=== PATIENT | male | born 1980 | race Two or more races ===

== ENCOUNTER 2017-05-16 15:01 | Inpatient (IN) | payer OTHER ==
[2017-05-16 19:35] VITALS: BMI 36.9
--- NOTE | 2017-05-16 20:16 | HP ---
Admission ROS [facility] - [facility] Chief Complaint: seeking rehab services after detox to maintain sobriety. Allergies/Adverse Reactions: Allergies Allergy/AdvReac Type Severity Reaction Status Date / Time No Known Allergies Allergy Verified 05/16/17 18:30 History of Present Illness: 37 Y.O. MALE WITH HX/OF ALCOHOLISM PCP AND CANNABIS DEPENDENCE HERE FOR REHAB. CLIENT WAS REFERRED BY [facility] AFTER COMPLETING DETOX THERE. STATES HAS NOT HAD ANY ALCOHOL OVER A WEEK. 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 DENIES LEGALS Exam Limitations: No Limitations - Ebola screening Have you traveled outside of the country in the last 21 days: No (N) Have you had contact with anyone from an Ebola affected area: No Have you been sick,other than usual withdrawal symptoms: No Do you have a fever: No - Review of Systems Constitutional: No Symptoms Reported EENT: reports: No Symptoms Reported Respiratory: reports: No Symptoms reported Cardiac: reports: No Symptoms Reported GI: reports: No Symptoms Reported : reports: No Symptoms Reported Musculoskeletal: reports: No Symptoms Reported Integumentary: reports: No Symptoms Reported Neuro: reports: No Symptoms reported Endocrine: reports: No Symptoms Reported Hematology: reports: No Symptoms Reported Psychiatric: reports: Anxious, Depressed Other Systems: Reviewed and Negative Patient History - Patient Medical History Hx Anemia: No Hx Asthma: No Hx Chronic Obstructive Pulmonary Disease (COPD): No Hx Cancer: No Hx Cardiac Disorders: No Hx Congestive Heart Failure: No Hx Hypertension: No Hx Hypercholesterolemia: No Hx Pacemaker: No HX Cerebrovascular Accident: No Hx Seizures: No Hx Dementia: No Hx Diabetes: No Hx Gastrointestinal Disorders: No Hx Liver Disease: No Hx Genitourinary Disorders: No Hx Sexually Transmitted Disorders: No Hx Renal Disease (ESRD): No Hx Thyroid Disease: No Hx Human Immunodeficiency Virus (HIV): No Hx Hepatitis C: No Hx Depression: Yes (ZOLOFT) Hx Suicide Attempt: No Hx Bipolar Disorder: Yes (ZYPREXA) Hx Schizophrenia: Yes Other Medical History: ANXIETY - Patient Surgical History Past Surgical History: No - PPD History Previous Implant?: Yes Documented Results: Negative w/o proof Implanted On Prior [facility] Admission?: No PPD to be Administered?: Yes - Smoking Cessation Smoking history: Current every day smoker Aproximately how many cigarettes per day: 8 Cigars Per Day: 0 Hx Chewing Tobacco Use: No Initiated information on smoking cessation: Yes 'Breaking Loose' booklet given: 05/16/17 - Substance & Tx. History Hx Alcohol Use: Yes Hx Substance Use: Yes Substance Use Type: Alcohol, Marijuana, Tranquilizers (PCP) Hx Substance Use Treatment: Yes ([facility]) - Substances Abused ZAID Route: Oral Frequency: Daily Amount used: 1 LITER Age of first use: 14 Date of Last Use: 05/09/17 PCP Route: Smoking Frequency: 3-6 times per week Amount used: 1 BAG Age of first use: 28 Date of Last Use: 05/09/17 THC Route: Smoking Frequency: 3-6 times per week Amount used: 2 JOINTS Age of first use: 14 Date of Last Use: 05/09/17 Family Disease History - Family Disease History Family History: Denies Admission Physical Exam [facility] - Vital Signs Vital Signs: Vital Signs - 24 hr 05/16/17 19:33 Temperature 97.7 F Pulse Rate 103 H Respiratory 18 Rate Blood Pressure 140/80 - Physical General Appearance: Yes: No Apparent Distress, Appropriately Dressed HEENTM: Yes: EOMI, Normocephalic, Normal Voice, NOEMI, Pharynx Normal Respiratory: Yes: Chest Non-Tender, Lungs Clear, Decreased Breath Sounds, No Respiratory Distress, No Accessory Muscle Use Neck: Yes: No masses,lesions,Nodules, Supple, Trachea in good position Breast: Yes: Other (GYNECOMASTIA) Cardiology: Yes: Regular Rhythm, S1, S2, Tachycardia Abdominal: Yes: Normal Bowel Sounds, Soft, Protuberent Genitourinary: Yes: Within Normal Limits Back: Yes: Normal Inspection Musculoskeletal: Yes: full range of Motion, Gait Steady Extremities: Yes: Normal Capillary Refill, Normal Inspection, Normal Range of Motion, Non-Tender 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, Fully Oriented, Alert, Motor Strength 5/5, Normal Mood/Affect Integumentary: Yes: Normal Color, Dry, Warm Lymphatic: Yes: Within Normal Limits - Diagnostic (1) PCP dependence Current Visit: Yes Status: Chronic (2) Cannabis abuse Current Visit: Yes Status: Chronic (3) Uncomplicated alcohol dependence Current Visit: Yes Status: Chronic (4) Nicotine dependence Current Visit: Yes Status: Chronic Qualifiers: Nicotine product type: cigarettes Substance use status: uncomplicated Qualified Code(s): F17.210 - Nicotine dependence, cigarettes, uncomplicated Cleared for Admission [facility] - Detox or Rehab Detox Regimen/Protocol: Not Applicable Claeared for Rehab Admission: Yes [facility] Breath Alcohol Content Breath Alcohol Content: 0 Urine Drug Screen - Results Drug Screen Negative: No Urine Drug Screen Results: THC-Marijuana, PCP-Phencyclidine Inpatient Rehab Admission - Initial Determination Are CD services needed?: Yes Free of communicable disease: Yes Not in need of hospitalization: Yes - Rehab Admission Criteria Previous failed treatment: Yes Poor recovery environment: Yes Comorbidities: Yes Lacks judgement: Yes Patient is meeting Inpatient Rehab admission criteria:: Yes
[2017-05-16] MEDS ORDERED: guaiFENesin/D-METHORPHAN HB 10 ML UNIT-DOSE CUPS PO PRN (20:25)
[2017-05-16] MEDS ORDERED: hydrOXYzine PAMOATE 50 MG CAPSULE (FP) PO PRN (20:25)
[2017-05-16] MEDS ORDERED: MENTHOL/PHENOL 1 EACH UD MM PRN (20:25)
[2017-05-16] MEDS ORDERED: P-EPHED 60MG/TRIPROLIDI 2.5MG TABLET PO PRN (20:25)
[2017-05-16] MEDS ORDERED: ACETAMINOPHEN 325 MG TABLET (FP) PO PRN (20:25)
[2017-05-16] MEDS ORDERED: NICOTINE POLACRILEX 2 MG GUM BUC PRN (20:25)
[2017-05-16] MEDS ORDERED: MAGNESIUM CITRATE 300 ML BOTTLE PO PRN (20:25)
[2017-05-16] MEDS ORDERED: MAG HYDROX/AL HYDROX/SIMETH 30 ML UNIT-DOSE CUP PO PRN (20:25)
[2017-05-16] MEDS ORDERED: MAGNESIUM HYDROX 2400MG/30ML ORAL SUSPENSION 30 ML CUP PO PRN (20:25)
[2017-05-16] MEDS ORDERED: IBUPROFEN 400 MG TABLET (FP) PO PRN (20:25)
[2017-05-16] MEDS ORDERED: LOPERAMIDE HCL 2 MG CAPSULE PO PRN (20:25)
[2017-05-16] MEDS ORDERED: TUBERCULIN PPD 5 TU/0.1ML VIAL ID ONE (23:01)
[2017-05-16] MEDS: THIAMINE HCL 100 MG TABLET (FP) PO SCH (23:03)
[2017-05-17 00:25] LABS: URINE APPEARANCE CLOUDY; URINE BILIRUBIN NEGATIVE (NEGATIVE); URINE BLOOD NEGATIVE (NEGATIVE); URINE COLOR AMBER; URINE GLUCOSE (UA) NEGATIVE (NEGATIVE); URINE KETONE NEGATIVE (NEGATIVE); URINE LEUK ESTERASE NEGATIVE (NEGATIVE); URINE NITRITE NEGATIVE (NEGATIVE)
[2017-05-17 00:38] LABS: URINE PROTEIN 1+ (NEGATIVE)
[2017-05-17 01:10] LABS: URINE MUCUS MANY; URINE RBC 2 /hpf (0-3); URINE WBC 2 /hpf (3-5)
--- NOTE | 2017-05-17 09:39 | HP ---
Psychiatrist Admission - Data Date of interview: 05/17/17 Admission source: [facility] Identifying data: This is the third [facility] admission first at for this 37 year old single male residing with his parent's [facility] apartment. Medical History: obesity, smokes cigarettes 5 a day. Psychiatric History: Patient reports his first psychiatric contact was around age 17, to address hyperactivity. Reported numerous hospitalizations but is unable to give details. [facility] most recent hospitalization was 2 months ago at [facility], currently under the care of psychiatrist at [email or web address] on Zyprexa 10 mg po hs and Zoloft 50 mg po daily. States was diagnosed as Bipolar , depressed. Physical/Sexual Abuse/Trauma History: Reports no history of physical or sexual abuse and no history of service. Vital Signs: Vital Signs - 24 hr 05/16/17 05/17/17 05/17/17 19:33 03:30 06:55 Temperature 97.7 F 97.9 F Pulse Rate 103 H 87 Respiratory 18 20 20 Rate Blood Pressure 140/80 133/85 Allergies/Adverse Reactions: Allergies Allergy/AdvReac Type Severity Reaction Status Date / Time No Known Allergies Allergy Verified 05/16/17 18:30 Date of last physical exam: 05/16/17 Concur with the findings of this exam: Yes - Substance Abuse/Tx History Hx Alcohol Use: Yes (1 liter of felicity daily use) Hx Substance Use: Yes Substance Use Type: Cocaine (daily $40-60), Marijuana (2 times a day) Hx Substance Use Treatment: Yes (detox/rehab x2 at [facility]) Mental Status Exam - Mental Status Exam Alert and Oriented to: Time, Place, Person Patient Appearance: Well Groomed Mood: Sad, Anxious Affect: Appropriate, Mood Congruent Patient Behavior: Appropriate, Cooperative Speech Pattern: Clear, Appropriate Voice Loudness: Normal Thought Process: Intact, Goal Oriented Thought Disorder: Not Present Hallucinations: Denies Suicidal Ideation: Denies Homicidal Ideation: Denies Insight/Judgement: Fair Sleep: Fair Appetite: Fair Muscle strength/Tone: Normal Gait/Station: Normal Psychiatric Findings - Problem List ([place] 1, 2,3) (1) Alcohol dependence Current Visit: Yes Status: Acute (2) Cocaine dependence Current Visit: Yes Status: Acute (3) Bipolar 1 disorder Current Visit: Yes Status: Acute (4) Nicotine dependence Current Visit: Yes Status: Chronic Qualifiers: Nicotine product type: cigarettes Substance use status: uncomplicated Qualified Code(s): F17.210 - Nicotine dependence, cigarettes, uncomplicated (5) PCP dependence Current Visit: Yes Status: Chronic - Initial Treatment Plan Initial Treatment Plan: Will continue Zyprexa 10 mg po hs and Zoloft 50 mg po daily, monitor progress as needed.
[2017-05-17] MEDS: PRENATAL VITAMINS W/ FOLIC ACID TABLET (FP) PO SCH (10:16)
[2017-05-17] MEDS: NICOTINE 14 MG/24 HOURS TOPICAL PATCH TD SCH (10:16)
--- NOTE | 2017-05-17 10:49 | EKG ---
Test Reason : Blood Pressure : / mmHG Vent. Rate : 100 BPM Atrial Rate : 100 BPM P-R Int : 132 ms QRS Dur : 094 ms QT Int : 370 ms P-R-T Axes : 058 051 059 degrees QTc Int : 477 ms NORMAL SINUS RHYTHM NORMAL ECG NO PREVIOUS ECGS AVAILABLE Confirmed by MD [place], JOEL ([id number]) on 05/17/2017 10:49:17 AM Referred By: Confirmed By:JOEL MCPHERSON MD
[2017-05-17 11:12] LABS: MCH 27.1 pg (25.7-33.7); MCHC 32.1 g/dl (32.0-35.9); MEAN CELL VOLUME 84.4 fl (80-96); MEAN PLT VOLUME 9.6 fl (7.5-11.1); PLATELET COUNT 199 K/MM3 (134-434); WHITE BLOOD COUNT 8.8 K/mm3 (4.0-10.0)
[2017-05-17 11:14] LABS: ALBUMIN 3.1 g/dl (3.4-5.0); ALK PHOS 84 U/L (45-117); ANION GAP 5 (8-16); BILIRUBIN,TOTAL 0.4 mg/dL (0.2-1.0); CO2 30 mmol/L (21-32); CREATININE 0.7 mg/dL (0.7-1.3); GLUCOSE,RANDOM 90 mg/dL (74-106); SGOT/AST 22 U/L (15-37); SGPT/ALT 32 U/L (12-78); TOT PROT 6.7 g/dl (6.4-8.2)
[2017-05-17 15:09] LABS: URINE LEUK ESTERASE Negative (NEGATIVE)
[2017-05-17] MEDS: THIAMINE HCL 100 MG TABLET (FP) PO SCH (21:41)
[2017-05-18] MEDS: SERTRALINE HCL 50 MG TABLET (FP) PO SCH (10:27)
[2017-05-18] MEDS: OLANZapine 10 MG TABLET PO SCH (10:27)
[2017-05-18] MEDS: PRENATAL VITAMINS W/ FOLIC ACID TABLET (FP) PO SCH (10:27)
[2017-05-18] MEDS: NICOTINE 14 MG/24 HOURS TOPICAL PATCH TD SCH (10:27)
[2017-05-18] MEDS: THIAMINE HCL 100 MG TABLET (FP) PO SCH (21:49)
[2017-05-19] MEDS: PRENATAL VITAMINS W/ FOLIC ACID TABLET (FP) PO SCH (10:32)
[2017-05-19] MEDS: OLANZapine 10 MG TABLET PO SCH (10:32)
[2017-05-19] MEDS: SERTRALINE HCL 50 MG TABLET (FP) PO SCH (10:32)
[2017-05-19] MEDS: NICOTINE 14 MG/24 HOURS TOPICAL PATCH TD SCH (10:48)
[2017-05-19] MEDS: THIAMINE HCL 100 MG TABLET (FP) PO SCH (21:32)
[2017-05-20] MEDS: SERTRALINE HCL 50 MG TABLET (FP) PO SCH (10:45)
[2017-05-20] MEDS: OLANZapine 10 MG TABLET PO SCH (10:45)
[2017-05-20] MEDS: NICOTINE 14 MG/24 HOURS TOPICAL PATCH TD SCH (10:45)
[2017-05-20] MEDS: PRENATAL VITAMINS W/ FOLIC ACID TABLET (FP) PO SCH (10:45)
[2017-05-20] MEDS: THIAMINE HCL 100 MG TABLET (FP) PO SCH (21:59)
[2017-05-21 06:53] VITALS: BP 145/84; PULSE 84; TEMP 97.8
[2017-05-21] MEDS: SERTRALINE HCL 50 MG TABLET (FP) PO SCH (10:32)
[2017-05-21] MEDS: NICOTINE 14 MG/24 HOURS TOPICAL PATCH TD SCH (10:32)
[2017-05-21] MEDS: OLANZapine 10 MG TABLET PO SCH (10:32)
[2017-05-21] MEDS: PRENATAL VITAMINS W/ FOLIC ACID TABLET (FP) PO SCH (10:32)
--- NOTE | 2017-05-21 12:57 | PN ---
Psychiatric Progress Note Vital Signs: Vital Signs Period Temp Pulse Resp BP Sys/Simental Pulse Ox Last 24 Hr 97.8 F 84 18-18 145/84 Date of Session: 05/21/17 Chief Complaint:: "leaving AMA" HPI: Patient is a 37 year old male with histry of alcohol, cocaine, PCP, nicotine dependence comorbid Bipolar disorder. ROS: WNL Current Side Effect: No Lab tests ordered: No Lab tests reviewed: Yes Provider note:: Patient requested to be discharged today, met with the patient to explore reasons for this decision, he reported that "I have court date tomorrow, I have to leave today". Patient was encouraged to stay and continue treatment but adamant to leave the treatment. Scripts provided for 30 days, patient is stable for AMA discharge. Total face to face time:: 15 Mental Status Exam - Mental Status Exam Alert and Oriented to: Time, Place, Person Cognitive Function: Good Patient Appearance: Well Groomed Mood: Hopeful Affect: Appropriate, Mood Congruent Patient Behavior: Appropriate, Cooperative Speech Pattern: Clear, Appropriate Voice Loudness: Normal Thought Process: Intact, Goal Oriented Thought Disorder: Not Present Hallucinations: Denies Suicidal Ideation: Denies Homicidal Ideation: Denies Insight/Judgement: Fair Sleep: Fair Appetite: Fair Muscle strength/Tone: Normal Gait/Station: Normal Psychiatric Treatment Plan - Problem List (4) Nicotine dependence Qualifiers: Nicotine product type: cigarettes Substance use status: uncomplicated Qualified Code(s): F17.210 - Nicotine dependence, cigarettes, uncomplicated
== END 2017-05-21 11:50 | disposition left against medical advice (07) | DRG 770 ==
LOC: YASAS 15:01 → Y5N 20:12
PROVIDERS: ADMIT Psychiatry & Neurology Psychiatry; ATTEND Psychiatry & Neurology Psychiatry
PROC: HZ42ZZZ Group Counseling for Substance Abuse Treatment, Cognitive-Behavioral (ICD-10-PCS; principal; 2017-05-16)
DX: F10.20 Alcohol dependence, uncomplicated (principal); F14.20 Cocaine dependence, uncomplicated; F16.20 Hallucinogen dependence, uncomplicated; F31.89 Other bipolar disorder
CPT/HCPCS: 36415; 80053; 81003; 81015; 85027; 86593; 86803; 93005; 93010

== ENCOUNTER 2021-02-19 01:49 | Inpatient (IN) | payer OTHER ==
[2021-02-19 02:25] VITALS: BMI 40.1
[2021-02-19] MEDS ORDERED: MENTHOL/PHENOL 1 EACH UD MM PRN (03:17)
[2021-02-19] MEDS ORDERED: MAGNESIUM CITRATE 300 ML BOTTLE PO PRN (03:17)
[2021-02-19] MEDS ORDERED: IBUPROFEN 400 MG TABLET (FP) PO PRN (03:17)
[2021-02-19] MEDS ORDERED: ONDANSETRON *ODT* 4 MG TABLET SL PRN (03:17)
[2021-02-19] MEDS ORDERED: BISMUTH SUBSALICYLATE 524 MG/30 ML PO PRN (03:17)
[2021-02-19] MEDS ORDERED: MAG HYDROX/AL HYDROX/SIMETH 30 ML UNIT-DOSE CUP PO PRN (03:17)
[2021-02-19] MEDS ORDERED: MAGNESIUM HYDROX 2400MG/30ML ORAL SUSPENSION 30 ML CUP PO PRN (03:17)
[2021-02-19] MEDS ORDERED: ACETAMINOPHEN 325 MG TABLET (FP) PO PRN ×2 (03:17)
[2021-02-19] MEDS ORDERED: diazePAM 5 MG TABLET PO PRN (08:58)
[2021-02-19] MEDS: PRENATAL VITAMINS W/ FOLIC ACID TABLET (FP) PO SCH (11:17)
[2021-02-19] MEDS: diazePAM 5 MG TABLET PO SCH ×3 (11:17→23:21)
[2021-02-19] MEDS: MELATONIN 5 MG TABLETS PO SCH (23:21)
[2021-02-19] MEDS: THIAMINE HCL 100 MG TABLET (FP) PO SCH (23:21)
[2021-02-20] MEDS: METHOCARBAMOL 500 MG TABLET PO PRN ×2 (06:02→19:14)
[2021-02-20] MEDS: diazePAM 5 MG TABLET PO SCH ×4 (06:02→22:44)
[2021-02-20] MEDS: PRENATAL VITAMINS W/ FOLIC ACID TABLET (FP) PO SCH (10:42)
[2021-02-20] MEDS: SERTRALINE HCL 50 MG TABLET (FP) PO SCH (11:29)
[2021-02-20 16:15] LABS: HEMATOCRIT 38.9 % (35.4-49); MCH 28.6 pg (25.7-33.7); MCHC 33.4 g/dl (32.0-35.9); MEAN CELL VOLUME 85.5 fl (80-96); MEAN PLT VOLUME 9.6 fl (7.5-11.1); PLATELET COUNT 190 10^3/uL (134-434); RBC 4.55 M/mm3 (4.00-5.60); RDW 15.4 % (11.9-15.9); WHITE BLOOD COUNT 7.9 K/mm3 (4.0-10.0)
[2021-02-20 16:40] LABS: CALCIUM 8.7 mg/dL (8.5-10.1)
[2021-02-20 16:41] LABS: ALBUMIN 3.2 g/dl (3.4-5.0); BLOOD UREA NITROGEN 13.1 mg/dL (7-18)
[2021-02-20 16:44] LABS: CREATININE 0.6 mg/dL (0.55-1.3)
[2021-02-20 16:46] LABS: BILIRUBIN,TOTAL 0.2 mg/dL (0.2-1); TOT PROT 6.6 g/dl (6.4-8.2)
[2021-02-20] MEDS: OLANZapine 7.5 MG TABLET PO SCH (22:42)
[2021-02-20] MEDS: MELATONIN 5 MG TABLETS PO SCH (22:42)
[2021-02-20] MEDS: THIAMINE HCL 100 MG TABLET (FP) PO SCH (22:42)
[2021-02-21] MEDS: diazePAM 5 MG TABLET PO SCH ×3 (07:03→22:19)
[2021-02-21] MEDS: PRENATAL VITAMINS W/ FOLIC ACID TABLET (FP) PO SCH (10:31)
[2021-02-21] MEDS: SERTRALINE HCL 50 MG TABLET (FP) PO SCH (10:31)
[2021-02-21] MEDS: MELATONIN 5 MG TABLETS PO SCH (22:17)
[2021-02-21] MEDS: THIAMINE HCL 100 MG TABLET (FP) PO SCH (22:18)
[2021-02-21] MEDS ORDERED: OLANZapine 10 MG TABLET PO SCH (23:16)
[2021-02-21] MEDS: OLANZapine 10 MG TABLET PO SCH (23:26)
[2021-02-22] MEDS: OLANZapine 7.5 MG TABLET PO SCH ×2 (00:46→00:47)
[2021-02-22] MEDS: diazePAM 5 MG TABLET PO SCH ×2 (06:17→18:11)
[2021-02-22] MEDS: METHOCARBAMOL 500 MG TABLET PO PRN ×2 (10:43→18:13)
[2021-02-22] MEDS: SERTRALINE HCL 50 MG TABLET (FP) PO SCH (10:43)
[2021-02-22] MEDS: PRENATAL VITAMINS W/ FOLIC ACID TABLET (FP) PO SCH (10:43)
[2021-02-22] MEDS: MELATONIN 5 MG TABLETS PO SCH (22:11)
[2021-02-22] MEDS: OLANZapine 10 MG TABLET PO SCH (22:11)
[2021-02-22] MEDS: THIAMINE HCL 100 MG TABLET (FP) PO SCH (22:11)
[2021-02-23] MEDS ORDERED: diazePAM 5 MG TABLET PO ONE (06:00)
[2021-02-23 09:43] VITALS: BP 134/88; PULSE 108; TEMP 98.3
[2021-02-23] MEDS: SERTRALINE HCL 50 MG TABLET (FP) PO SCH (10:05)
[2021-02-23] MEDS: PRENATAL VITAMINS W/ FOLIC ACID TABLET (FP) PO SCH (10:07)
== END 2021-02-23 10:10 | disposition home or self-care (01) | DRG 774 ==
LOC: YASAS 01:49 → Y3N 15:49
PROVIDERS: ADMIT Allergy & Immunology; ATTEND Allergy & Immunology
PROC: HZ2ZZZZ Detoxification Services for Substance Abuse Treatment (ICD-10-PCS; principal; 2021-02-19)
DX: F10.230 Alcohol dependence with withdrawal, uncomplicated (principal); F14.20 Cocaine dependence, uncomplicated; F16.20 Hallucinogen dependence, uncomplicated; F12.20 Cannabis dependence, uncomplicated; F17.210 Nicotine dependence, cigarettes, uncomplicated; F19.280 Other psychoactive substance dependence with psychoactive substance-induced anxiety disorder; F19.282 Other psychoactive substance dependence with psychoactive substance-induced sleep disorder; F19.24 Other psychoactive substance dependence with psychoactive substance-induced mood disorder; F25.9 Schizoaffective disorder, unspecified; J45.909 Unspecified asthma, uncomplicated; E66.01 Morbid (severe) obesity due to excess calories; Z68.41 Body mass index [BMI] 40.0-44.9, adult; Z86.69 Personal history of other diseases of the nervous system and sense organs
CPT/HCPCS: 36415; 80053; 85027; 86780; 93005; 93010; C9803; U0003; U0005

== ENCOUNTER 2021-06-08 10:26 | Inpatient (IN) | payer OTHER ==
[2021-06-08] MEDS ORDERED: chlordiazePOXIDE HCL 25 MG CAPSULE PO PRN (11:41)
[2021-06-08] MEDS ORDERED: MAG HYDROX/AL HYDROX/SIMETH 30 ML UNIT-DOSE CUP PO PRN (11:41)
[2021-06-08] MEDS ORDERED: NICOTINE 10 MG CARTRIDGE (INHALER) IH PRN (11:41)
[2021-06-08] MEDS ORDERED: MENTHOL/PHENOL 1 EACH UD MM PRN (11:41)
[2021-06-08] MEDS ORDERED: ACETAMINOPHEN 325 MG TABLET (FP) PO PRN ×2 (11:41)
[2021-06-08] MEDS ORDERED: MAGNESIUM CITRATE 300 ML BOTTLE PO PRN (11:41)
[2021-06-08] MEDS ORDERED: BISMUTH SUBSALICYLATE 262 MG/15 ML BTL PO PRN (11:41)
[2021-06-08] MEDS ORDERED: IBUPROFEN 400 MG TABLET (FP) PO PRN (11:41)
[2021-06-08] MEDS ORDERED: MAGNESIUM HYDROX 2400MG/30ML ORAL SUSPENSION 30 ML CUP PO PRN (11:41)
[2021-06-08] MEDS ORDERED: ONDANSETRON *ODT* 4 MG TABLET SL PRN (11:41)
[2021-06-08 11:51] VITALS: BMI 41.2
[2021-06-08] MEDS: hydrOXYzine PAMOATE 25 MG CAPSULE (FP) PO SCH ×3 (14:42→22:22)
[2021-06-08 17:15] LABS: HEMATOCRIT 41.3 % (35.4-49); HEMOGLOBIN 13.1 GM/dL (11.7-16.9); MCH 27.2 pg (25.7-33.7); MCHC 31.7 g/dl (32.0-35.9); MEAN CELL VOLUME 85.8 fl (80-96); MEAN PLT VOLUME 9.5 fl (7.5-11.1); PLATELET COUNT 214 10^3/uL (134-434); RBC 4.81 M/mm3 (4.00-5.60); RDW 15.2 % (11.9-15.9); WHITE BLOOD COUNT 8.6 K/mm3 (4.0-10.0)
[2021-06-08] MEDS: chlordiazePOXIDE HCL 25 MG CAPSULE PO SCH ×2 (18:08→22:22)
[2021-06-08 18:14] LABS: ALBUMIN 3.7 g/dl (3.4-5.0); BLOOD UREA NITROGEN 17.6 mg/dL (7-18)
[2021-06-08 18:16] LABS: TOT PROT 7.1 g/dl (6.4-8.2)
[2021-06-08 18:17] LABS: CREATININE 0.9 mg/dL (0.55-1.3)
[2021-06-08 18:18] LABS: BILIRUBIN,TOTAL 0.2 mg/dL (0.2-1)
[2021-06-08] MEDS: MELATONIN 5 MG TABLETS PO SCH (22:22)
[2021-06-08] MEDS: THIAMINE HCL 100 MG TABLET (FP) PO SCH (22:22)
[2021-06-08] MEDS: METHOCARBAMOL 500 MG TABLET PO PRN (22:23)
[2021-06-09] MEDS: hydrOXYzine PAMOATE 25 MG CAPSULE (FP) PO SCH ×5 (05:17→22:23)
[2021-06-09] MEDS: chlordiazePOXIDE HCL 25 MG CAPSULE PO SCH ×4 (05:17→22:24)
[2021-06-09] MEDS: METHOCARBAMOL 500 MG TABLET PO PRN (05:17)
[2021-06-09] MEDS: PRENATAL VITAMINS W/ FOLIC ACID TABLET (FP) PO SCH (10:19)
[2021-06-09] MEDS ORDERED: PATIENT'S OWN MEDICATION (NON-FORMULARY) (Olanzapine [Olanzapine] 15 MG Tablet) PO SCH (22:00)
[2021-06-09] MEDS: MELATONIN 5 MG TABLETS PO SCH (22:24)
[2021-06-09] MEDS: OLANZapine 7.5 MG TABLET PO SCH (22:24)
[2021-06-09] MEDS: THIAMINE HCL 100 MG TABLET (FP) PO SCH (22:25)
[2021-06-10] MEDS: chlordiazePOXIDE HCL 25 MG CAPSULE PO SCH ×4 (05:43→22:20)
[2021-06-10] MEDS: hydrOXYzine PAMOATE 25 MG CAPSULE (FP) PO SCH ×5 (05:44→22:21)
[2021-06-10] MEDS: PRENATAL VITAMINS W/ FOLIC ACID TABLET (FP) PO SCH (10:13)
[2021-06-10] MEDS: SERTRALINE HCL 50 MG TABLET (FP) PO SCH (10:13)
[2021-06-10] MEDS: THIAMINE HCL 100 MG TABLET (FP) PO SCH (22:21)
[2021-06-10] MEDS: OLANZapine 7.5 MG TABLET PO SCH (22:21)
[2021-06-10] MEDS: MELATONIN 5 MG TABLETS PO SCH (22:21)
[2021-06-11] MEDS ORDERED: chlordiazePOXIDE HCL 10 MG CAPSULE PO PRN
[2021-06-11] MEDS: hydrOXYzine PAMOATE 25 MG CAPSULE (FP) PO SCH ×5 (05:17→22:51)
[2021-06-11] MEDS: chlordiazePOXIDE HCL 10 MG CAPSULE PO SCH ×4 (05:18→22:50)
[2021-06-11] MEDS: PRENATAL VITAMINS W/ FOLIC ACID TABLET (FP) PO SCH (10:26)
[2021-06-11] MEDS: SERTRALINE HCL 50 MG TABLET (FP) PO SCH (10:26)
[2021-06-11] MEDS: MELATONIN 5 MG TABLETS PO SCH (22:51)
[2021-06-11] MEDS: THIAMINE HCL 100 MG TABLET (FP) PO SCH (22:51)
[2021-06-11] MEDS: OLANZapine 7.5 MG TABLET PO SCH (23:02)
[2021-06-12] MEDS: hydrOXYzine PAMOATE 25 MG CAPSULE (FP) PO SCH ×5 (05:05→22:02)
[2021-06-12] MEDS: chlordiazePOXIDE HCL 10 MG CAPSULE PO SCH ×2 (05:05→17:28)
[2021-06-12] MEDS: PRENATAL VITAMINS W/ FOLIC ACID TABLET (FP) PO SCH (10:13)
[2021-06-12] MEDS: SERTRALINE HCL 50 MG TABLET (FP) PO SCH (10:13)
[2021-06-12] MEDS: MELATONIN 5 MG TABLETS PO SCH (22:02)
[2021-06-12] MEDS: THIAMINE HCL 100 MG TABLET (FP) PO SCH (22:02)
[2021-06-12] MEDS: OLANZapine 7.5 MG TABLET PO SCH (22:03)
[2021-06-12] MEDS: METHOCARBAMOL 500 MG TABLET PO PRN (22:04)
[2021-06-13] MEDS ORDERED: chlordiazePOXIDE HCL 10 MG CAPSULE PO ONE (05:00)
[2021-06-13] MEDS: hydrOXYzine PAMOATE 25 MG CAPSULE (FP) PO SCH ×2 (06:10→10:25)
[2021-06-13 08:59] VITALS: BP 153/89; PULSE 109; TEMP 97.1
[2021-06-13] MEDS: SERTRALINE HCL 50 MG TABLET (FP) PO SCH (10:25)
[2021-06-13] MEDS: PRENATAL VITAMINS W/ FOLIC ACID TABLET (FP) PO SCH (10:25)
== END 2021-06-13 11:24 | disposition other institution (70) | DRG 774 ==
LOC: YASAS 10:26 → Y3N 11:57
PROVIDERS: ADMIT Allergy & Immunology; ATTEND Allergy & Immunology
PROC: HZ2ZZZZ Detoxification Services for Substance Abuse Treatment (ICD-10-PCS; principal; 2021-06-08)
DX: F10.230 Alcohol dependence with withdrawal, uncomplicated (principal); F14.20 Cocaine dependence, uncomplicated; F16.20 Hallucinogen dependence, uncomplicated; F12.20 Cannabis dependence, uncomplicated; F17.210 Nicotine dependence, cigarettes, uncomplicated; F19.24 Other psychoactive substance dependence with psychoactive substance-induced mood disorder; F20.9 Schizophrenia, unspecified; F31.9 Bipolar disorder, unspecified; F41.9 Anxiety disorder, unspecified; G47.39 Other sleep apnea; J45.909 Unspecified asthma, uncomplicated; Z86.69 Personal history of other diseases of the nervous system and sense organs; E66.01 Morbid (severe) obesity due to excess calories; Z68.41 Body mass index [BMI] 40.0-44.9, adult; Z59.01 Sheltered homelessness
CPT/HCPCS: 36415; 80053; 85027; 86780; C9803; U0003; U0005

== ENCOUNTER 2021-06-13 11:45 | Inpatient (IN) | payer OTHER ==
[2021-06-13] MEDS ORDERED: MAGNESIUM HYDROX 2400MG/30ML ORAL SUSPENSION 30 ML CUP PO PRN (12:17)
[2021-06-13] MEDS ORDERED: P-EPHED 60MG/TRIPROLIDI 2.5MG TABLET PO PRN (12:17)
[2021-06-13] MEDS ORDERED: guaiFENesin 200 MG/10 ML 10 ML UNIT-DOSE CUPS PO PRN (12:17)
[2021-06-13] MEDS ORDERED: MAGNESIUM CITRATE 300 ML BOTTLE PO PRN (12:17)
[2021-06-13] MEDS ORDERED: ACETAMINOPHEN 325 MG TABLET (FP) PO PRN (12:17)
[2021-06-13] MEDS ORDERED: MENTHOL/PHENOL 1 EACH UD MM PRN (12:17)
[2021-06-13] MEDS ORDERED: IBUPROFEN 400 MG TABLET (FP) PO PRN (12:17)
[2021-06-13] MEDS ORDERED: LOPERAMIDE HCL 2 MG CAPSULE PO PRN (12:17)
[2021-06-13] MEDS: THIAMINE HCL 100 MG TABLET (FP) PO SCH (21:47)
[2021-06-13] MEDS: MELATONIN 5 MG TABLETS PO SCH (21:47)
[2021-06-13] MEDS ORDERED: OLANZapine 7.5 MG TABLET PO SCH (22:00)
[2021-06-14] MEDS: SERTRALINE HCL 50 MG TABLET (FP) PO SCH (09:55)
[2021-06-14] MEDS: PRENATAL VITAMINS W/ FOLIC ACID TABLET (FP) PO SCH (09:55)
[2021-06-14] MEDS: MAG HYDROX/AL HYDROX/SIMETH 30 ML UNIT-DOSE CUP PO PRN (09:56)
[2021-06-14] MEDS: THIAMINE HCL 100 MG TABLET (FP) PO SCH (21:57)
[2021-06-14] MEDS: OLANZapine 10 MG TABLET PO SCH (21:57)
[2021-06-14] MEDS: MELATONIN 5 MG TABLETS PO SCH (21:57)
[2021-06-15] MEDS: PRENATAL VITAMINS W/ FOLIC ACID TABLET (FP) PO SCH (09:41)
[2021-06-15] MEDS: SERTRALINE HCL 50 MG TABLET (FP) PO SCH (09:42)
[2021-06-15] MEDS: MELATONIN 5 MG TABLETS PO SCH (21:59)
[2021-06-15] MEDS: THIAMINE HCL 100 MG TABLET (FP) PO SCH (21:59)
[2021-06-15] MEDS: OLANZapine 10 MG TABLET PO SCH (21:59)
[2021-06-16 06:39] VITALS: PULSE 95; TEMP 98.4
[2021-06-16] MEDS: PRENATAL VITAMINS W/ FOLIC ACID TABLET (FP) PO SCH (11:09)
[2021-06-16] MEDS: SERTRALINE HCL 50 MG TABLET (FP) PO SCH (11:09)
[2021-06-16] MEDS: THIAMINE HCL 100 MG TABLET (FP) PO SCH (21:27)
[2021-06-16] MEDS: MELATONIN 5 MG TABLETS PO SCH (21:27)
[2021-06-16] MEDS: MAG HYDROX/AL HYDROX/SIMETH 30 ML UNIT-DOSE CUP PO PRN (21:28)
[2021-06-16] MEDS: OLANZapine 10 MG TABLET PO SCH (21:28)
[2021-06-16 23:39] VITALS: BP 161/92
== END 2021-06-17 09:10 | disposition left against medical advice (07) | DRG 770 ==
LOC: YASAS 11:45 → Y3W 11:46
PROVIDERS: ADMIT Allergy & Immunology; ATTEND Allergy & Immunology
PROC: HZ42ZZZ Group Counseling for Substance Abuse Treatment, Cognitive-Behavioral (ICD-10-PCS; principal; 2021-06-13)
DX: F10.20 Alcohol dependence, uncomplicated (principal); F14.20 Cocaine dependence, uncomplicated; F16.20 Hallucinogen dependence, uncomplicated; F12.10 Cannabis abuse, uncomplicated; F17.210 Nicotine dependence, cigarettes, uncomplicated; F20.9 Schizophrenia, unspecified; F19.24 Other psychoactive substance dependence with psychoactive substance-induced mood disorder; F31.9 Bipolar disorder, unspecified; F41.9 Anxiety disorder, unspecified; E66.01 Morbid (severe) obesity due to excess calories; Z68.41 Body mass index [BMI] 40.0-44.9, adult; Z59.01 Sheltered homelessness
CPT/HCPCS: C9803; U0003; U0005

== ENCOUNTER 2021-07-27 10:47 | Inpatient (IN) | payer OTHER ==
[2021-07-27] MEDS ORDERED: MAGNESIUM HYDROX 2400MG/30ML ORAL SUSPENSION 30 ML CUP PO PRN (12:34)
[2021-07-27] MEDS ORDERED: MAGNESIUM CITRATE 300 ML BOTTLE PO PRN (12:34)
[2021-07-27] MEDS ORDERED: P-EPHED 60MG/TRIPROLIDI 2.5MG TABLET PO PRN (12:34)
[2021-07-27] MEDS ORDERED: IBUPROFEN 400 MG TABLET (FP) PO PRN (12:34)
[2021-07-27] MEDS ORDERED: MAG HYDROX/AL HYDROX/SIMETH 30 ML UNIT-DOSE CUP PO PRN (12:34)
[2021-07-27] MEDS ORDERED: LOPERAMIDE HCL 2 MG CAPSULE PO PRN (12:34)
[2021-07-27] MEDS ORDERED: NICOTINE 10 MG CARTRIDGE (INHALER) IH PRN (12:34)
[2021-07-27] MEDS ORDERED: ACETAMINOPHEN 325 MG TABLET (FP) PO PRN (12:34)
[2021-07-27] MEDS ORDERED: guaiFENesin 200 MG/10 ML 10 ML UNIT-DOSE CUPS PO PRN (12:34)
[2021-07-27 15:11] VITALS: BMI 41.9
[2021-07-27 16:28] LABS: HEMATOCRIT 42.5 % (35.4-49); HEMOGLOBIN 13.4 GM/dL (11.7-16.9); MCH 27.4 pg (25.7-33.7); MCHC 31.5 g/dl (32.0-35.9); PLATELET COUNT 206 10^3/uL (134-434); RBC 4.88 M/mm3 (4.00-5.60); RDW 15.9 % (11.9-15.9); WHITE BLOOD COUNT 10.7 K/mm3 (4.0-10.0)
[2021-07-27 16:37] LABS: BLOOD UREA NITROGEN 19.2 mg/dL (7-18); CALCIUM 9.5 mg/dL (8.5-10.1)
[2021-07-27 16:41] LABS: CREATININE 0.9 mg/dL (0.55-1.3)
[2021-07-27 16:42] LABS: BILIRUBIN,TOTAL 0.4 mg/dL (0.2-1); TOT PROT 7.6 g/dl (6.4-8.2)
[2021-07-28] MEDS: hydrOXYzine PAMOATE 25 MG CAPSULE (FP) PO SCH ×8 (00:07→21:46)
[2021-07-28] MEDS: MELATONIN 5 MG TABLETS PO SCH ×2 (00:10→21:46)
[2021-07-28] MEDS: THIAMINE HCL 100 MG TABLET (FP) PO SCH ×2 (00:10→21:46)
[2021-07-28] MEDS: PRENATAL VITAMINS W/ FOLIC ACID TABLET (FP) PO SCH (09:46)
[2021-07-28] MEDS: NICOTINE 7 MG/24 HOURS TOPICAL PATCH TD SCH (09:46)
[2021-07-28 10:36] LABS: EPI CELLS 12 /uL (0-25.1); HYALINE CASTS 1 /uL (0-3.1); PH,URINE 5.5 (5.0-8.0); URINE APPEARANCE CLEAR; URINE BACTERIA 143 /uL (0-1359); URINE BILIRUBIN NEGATIVE (NEGATIVE); URINE COLOR YELLOW; URINE GLUCOSE (UA) NEGATIVE (NEGATIVE); URINE KETONE NEGATIVE (NEGATIVE); URINE LEUK ESTERASE TRACE (NEGATIVE); URINE NITRITE NEGATIVE (NEGATIVE); URINE PROTEIN NEGATIVE (NEGATIVE); URINE RBC 3 /uL (0-23.9); URINE UROBILINOGEN 0.2 mg/dL (0.2-1.0); URINE WBC 25 /uL (0-25.8)
[2021-07-28] MEDS: SERTRALINE HCL 50 MG TABLET (FP) PO SCH (13:20)
[2021-07-28] MEDS ORDERED: OLANZapine 7.5 MG TABLET PO SCH (22:00)
[2021-07-28] MEDS ORDERED: OLANZapine 5 MG TABLET PO SCH (22:20)
[2021-07-28] MEDS: OLANZapine 5 MG TABLET PO SCH (22:38)
[2021-07-29] MEDS: hydrOXYzine PAMOATE 25 MG CAPSULE (FP) PO SCH ×5 (07:06→21:57)
[2021-07-29] MEDS: SERTRALINE HCL 50 MG TABLET (FP) PO SCH (09:52)
[2021-07-29] MEDS: PRENATAL VITAMINS W/ FOLIC ACID TABLET (FP) PO SCH (09:52)
[2021-07-29] MEDS: NICOTINE 7 MG/24 HOURS TOPICAL PATCH TD SCH (09:52)
[2021-07-29] MEDS: OLANZapine 5 MG TABLET PO SCH (21:26)
[2021-07-29] MEDS: THIAMINE HCL 100 MG TABLET (FP) PO SCH (21:26)
[2021-07-29] MEDS: MELATONIN 5 MG TABLETS PO SCH (21:26)
[2021-07-30] MEDS: hydrOXYzine PAMOATE 25 MG CAPSULE (FP) PO SCH ×5 (06:30→21:14)
[2021-07-30] MEDS: NICOTINE 7 MG/24 HOURS TOPICAL PATCH TD SCH (09:59)
[2021-07-30] MEDS: PRENATAL VITAMINS W/ FOLIC ACID TABLET (FP) PO SCH (09:59)
[2021-07-30] MEDS: SERTRALINE HCL 50 MG TABLET (FP) PO SCH (10:00)
[2021-07-30 15:07] LABS: SARS-CoV-2 NAA Not Detected (Not Detected)
[2021-07-30] MEDS: THIAMINE HCL 100 MG TABLET (FP) PO SCH (21:13)
[2021-07-30] MEDS: MELATONIN 5 MG TABLETS PO SCH (21:13)
[2021-07-30] MEDS: OLANZapine 5 MG TABLET PO SCH (21:14)
[2021-07-31] MEDS: hydrOXYzine PAMOATE 25 MG CAPSULE (FP) PO SCH ×5 (07:14→21:38)
[2021-07-31] MEDS: SERTRALINE HCL 50 MG TABLET (FP) PO SCH (10:05)
[2021-07-31] MEDS: PRENATAL VITAMINS W/ FOLIC ACID TABLET (FP) PO SCH (10:05)
[2021-07-31] MEDS: NICOTINE 7 MG/24 HOURS TOPICAL PATCH TD SCH (10:05)
[2021-07-31] MEDS: MELATONIN 5 MG TABLETS PO SCH (21:37)
[2021-07-31] MEDS: THIAMINE HCL 100 MG TABLET (FP) PO SCH (21:37)
[2021-07-31] MEDS: OLANZapine 5 MG TABLET PO SCH (21:38)
[2021-08-01] MEDS: hydrOXYzine PAMOATE 25 MG CAPSULE (FP) PO SCH ×5 (06:15→21:12)
[2021-08-01] MEDS: NICOTINE 7 MG/24 HOURS TOPICAL PATCH TD SCH (10:01)
[2021-08-01] MEDS: SERTRALINE HCL 50 MG TABLET (FP) PO SCH (10:01)
[2021-08-01] MEDS: PRENATAL VITAMINS W/ FOLIC ACID TABLET (FP) PO SCH (10:01)
[2021-08-01] MEDS: OLANZapine 5 MG TABLET PO SCH (21:12)
[2021-08-01] MEDS: THIAMINE HCL 100 MG TABLET (FP) PO SCH (21:12)
[2021-08-01] MEDS: MELATONIN 5 MG TABLETS PO SCH (21:12)
[2021-08-02] MEDS: hydrOXYzine PAMOATE 25 MG CAPSULE (FP) PO SCH ×2 (06:27→09:58)
[2021-08-02 06:50] VITALS: BP 158/95; PULSE 74; TEMP 98.2
[2021-08-02] MEDS: SERTRALINE HCL 50 MG TABLET (FP) PO SCH (09:58)
[2021-08-02] MEDS: PRENATAL VITAMINS W/ FOLIC ACID TABLET (FP) PO SCH (09:58)
[2021-08-02] MEDS: NICOTINE 7 MG/24 HOURS TOPICAL PATCH TD SCH (09:59)
== END 2021-08-02 10:06 | disposition home or self-care (01) | DRG 772 ==
LOC: YASAS 10:47 → Y3W 17:25
PROVIDERS: ADMIT Allergy & Immunology; ATTEND Allergy & Immunology
PROC: HZ42ZZZ Group Counseling for Substance Abuse Treatment, Cognitive-Behavioral (ICD-10-PCS; principal; 2021-07-27)
DX: F10.20 Alcohol dependence, uncomplicated (principal); F11.20 Opioid dependence, uncomplicated; F14.20 Cocaine dependence, uncomplicated; F16.20 Hallucinogen dependence, uncomplicated; F12.20 Cannabis dependence, uncomplicated; F17.210 Nicotine dependence, cigarettes, uncomplicated; F19.282 Other psychoactive substance dependence with psychoactive substance-induced sleep disorder; F19.24 Other psychoactive substance dependence with psychoactive substance-induced mood disorder; F25.9 Schizoaffective disorder, unspecified; E66.01 Morbid (severe) obesity due to excess calories; Z68.41 Body mass index [BMI] 40.0-44.9, adult; Z86.69 Personal history of other diseases of the nervous system and sense organs; Z56.0 Unemployment, unspecified; Z59.01 Sheltered homelessness
CPT/HCPCS: 36415; 80053; 81003; 85027; 86780; 87811; C9803; U0003; U0005

== ENCOUNTER 2022-02-13 12:54 | Inpatient (IN) | payer OTHER ==
[2022-02-13 14:17] VITALS: BMI 40.1
[2022-02-13] MEDS ORDERED: MAG HYDROX/AL HYDROX/SIMETH 30 ML UNIT-DOSE CUP PO PRN (15:13)
[2022-02-13] MEDS ORDERED: BENZOCAINE/MENTHOL (CHLORASEPTIC ) LOZENGE MM PRN (15:13)
[2022-02-13] MEDS ORDERED: ONDANSETRON *ODT* 4 MG TABLET SL PRN (15:13)
[2022-02-13] MEDS ORDERED: MAGNESIUM CITRATE 300 ML BOTTLE PO PRN (15:13)
[2022-02-13] MEDS ORDERED: BISMUTH SUBSALICYLATE 524 MG/30 ML PO PRN (15:13)
[2022-02-13] MEDS ORDERED: ACETAMINOPHEN 325 MG TABLET (FP) PO PRN ×2 (15:13)
[2022-02-13] MEDS ORDERED: chlordiazePOXIDE HCL 25 MG CAPSULE PO PRN (15:13)
[2022-02-13] MEDS ORDERED: MAGNESIUM HYDROX 2400MG/30ML ORAL SUSPENSION 30 ML CUP PO PRN (15:13)
[2022-02-13] MEDS ORDERED: NICOTINE POLACRILEX 2 MG GUM BUC PRN (15:13)
[2022-02-13] MEDS ORDERED: IBUPROFEN 600 MG TABLET (FP) PO PRN (15:13)
[2022-02-13] MEDS ORDERED: IBUPROFEN 400 MG TABLET (FP) PO PRN (15:13)
[2022-02-13] MEDS ORDERED: LOPERAMIDE HCL 2 MG CAPSULE PO PRN (15:13)
[2022-02-13] MEDS ORDERED: DICYCLOMINE HCL 10 MG CAPSULE PO PRN (15:13)
[2022-02-13] MEDS ORDERED: NICOTINE 10 MG CARTRIDGE (INHALER) IH PRN (15:13)
[2022-02-13] MEDS: hydrOXYzine PAMOATE 25 MG CAPSULE (FP) PO SCH ×2 (17:31→22:53)
[2022-02-13] MEDS: chlordiazePOXIDE HCL 25 MG CAPSULE PO SCH ×2 (17:31→22:46)
[2022-02-13] MEDS: THIAMINE HCL 100 MG TABLET (FP) PO SCH (22:46)
[2022-02-13] MEDS: MELATONIN 5 MG TABLETS PO SCH (22:48)
[2022-02-14] MEDS: hydrOXYzine PAMOATE 25 MG CAPSULE (FP) PO SCH ×5 (05:18→22:30)
[2022-02-14] MEDS: chlordiazePOXIDE HCL 25 MG CAPSULE PO SCH ×4 (05:18→22:29)
[2022-02-14] MEDS: PRENATAL VITAMINS W/ FOLIC ACID TABLET (FP) PO SCH (10:33)
[2022-02-14] MEDS: SERTRALINE HCL 50 MG TABLET (FP) PO SCH (10:34)
[2022-02-14 14:09] LABS: BLOOD UREA NITROGEN 10.4 mg/dL (7-18); CALCIUM 8.9 mg/dL (8.5-10.1)
[2022-02-14 14:10] LABS: ALBUMIN 3.5 g/dl (3.4-5.0)
[2022-02-14 14:12] LABS: HEMATOCRIT 41.5 % (35.4-49); HEMOGLOBIN 13.3 GM/dL (11.7-16.9); MCH 28.1 pg (25.7-33.7); MCHC 32.1 g/dl (32.0-35.9); MEAN CELL VOLUME 87.5 fl (80-96); PLATELET COUNT 160 10^3/uL (134-434); RBC 4.75 M/mm3 (4.00-5.60); RDW 15.3 % (11.9-15.9); WHITE BLOOD COUNT 6.8 K/mm3 (4.0-10.0)
[2022-02-14 14:15] LABS: CREATININE 0.7 mg/dL (0.55-1.3)
[2022-02-14 14:17] LABS: BILIRUBIN,TOTAL 0.2 mg/dL (0.2-1); TOT PROT 6.7 g/dl (6.4-8.2)
[2022-02-14] MEDS ORDERED: OLANZapine 7.5 MG TABLET PO SCH (22:00)
[2022-02-14] MEDS: THIAMINE HCL 100 MG TABLET (FP) PO SCH (22:29)
[2022-02-14] MEDS: MELATONIN 5 MG TABLETS PO SCH ×2 (22:30→22:31)
[2022-02-15] MEDS: OLANZapine 10 MG TABLET PO SCH ×2 (00:05→22:28)
[2022-02-15] MEDS: hydrOXYzine PAMOATE 25 MG CAPSULE (FP) PO SCH ×5 (05:02→22:27)
[2022-02-15] MEDS: chlordiazePOXIDE HCL 25 MG CAPSULE PO SCH ×4 (05:03→22:27)
[2022-02-15] MEDS: PRENATAL VITAMINS W/ FOLIC ACID TABLET (FP) PO SCH (10:41)
[2022-02-15] MEDS: METHOCARBAMOL 500 MG TABLET PO PRN (10:41)
[2022-02-15] MEDS: SERTRALINE HCL 50 MG TABLET (FP) PO SCH (10:41)
[2022-02-15] MEDS: THIAMINE HCL 100 MG TABLET (FP) PO SCH (22:26)
[2022-02-15] MEDS: MELATONIN 5 MG TABLETS PO SCH (22:27)
[2022-02-16] MEDS ORDERED: chlordiazePOXIDE HCL 10 MG CAPSULE PO PRN
[2022-02-16] MEDS: hydrOXYzine PAMOATE 25 MG CAPSULE (FP) PO SCH ×5 (05:51→22:27)
[2022-02-16] MEDS: chlordiazePOXIDE HCL 10 MG CAPSULE PO SCH ×4 (05:51→22:27)
[2022-02-16] MEDS: SERTRALINE HCL 50 MG TABLET (FP) PO SCH (10:54)
[2022-02-16] MEDS: PRENATAL VITAMINS W/ FOLIC ACID TABLET (FP) PO SCH (10:54)
[2022-02-16] MEDS: MELATONIN 5 MG TABLETS PO SCH (22:27)
[2022-02-16] MEDS: OLANZapine 10 MG TABLET PO SCH (22:27)
[2022-02-16] MEDS: THIAMINE HCL 100 MG TABLET (FP) PO SCH (22:27)
[2022-02-17] MEDS: chlordiazePOXIDE HCL 10 MG CAPSULE PO SCH ×2 (05:06→17:25)
[2022-02-17] MEDS: hydrOXYzine PAMOATE 25 MG CAPSULE (FP) PO SCH ×3 (05:06→14:40)
[2022-02-17 09:23] VITALS: TEMP 97.3
[2022-02-17] MEDS: PRENATAL VITAMINS W/ FOLIC ACID TABLET (FP) PO SCH (10:32)
[2022-02-17] MEDS: METHOCARBAMOL 500 MG TABLET PO PRN (10:32)
[2022-02-17] MEDS: SERTRALINE HCL 50 MG TABLET (FP) PO SCH (10:32)
[2022-02-17 14:10] VITALS: RESP 18
[2022-02-17 17:17] VITALS: PULSE 110
[2022-02-17 17:27] VITALS: BP 150/93
[2022-02-18] MEDS ORDERED: chlordiazePOXIDE HCL 10 MG CAPSULE PO ONE (05:00)
== END 2022-02-17 17:25 | disposition home or self-care (01) | DRG 774 ==
LOC: YASAS 12:54 → Y6N 14:51
PROVIDERS: ADMIT Allergy & Immunology; ATTEND Surgery
PROC: HZ2ZZZZ Detoxification Services for Substance Abuse Treatment (ICD-10-PCS; principal; 2022-02-13)
DX: F10.230 Alcohol dependence with withdrawal, uncomplicated (principal); F14.20 Cocaine dependence, uncomplicated; F16.20 Hallucinogen dependence, uncomplicated; F12.20 Cannabis dependence, uncomplicated; F17.210 Nicotine dependence, cigarettes, uncomplicated; F19.282 Other psychoactive substance dependence with psychoactive substance-induced sleep disorder; F19.280 Other psychoactive substance dependence with psychoactive substance-induced anxiety disorder; F19.24 Other psychoactive substance dependence with psychoactive substance-induced mood disorder; F31.9 Bipolar disorder, unspecified; G47.33 Obstructive sleep apnea (adult) (pediatric); J45.909 Unspecified asthma, uncomplicated; E66.01 Morbid (severe) obesity due to excess calories; Z68.41 Body mass index [BMI] 40.0-44.9, adult; Z86.69 Personal history of other diseases of the nervous system and sense organs; Z86.59 Personal history of other mental and behavioral disorders
CPT/HCPCS: 36415; 80053; 85027; 86780; C9803-CS; U0003; U0005

== ENCOUNTER 2022-04-09 08:23 | Inpatient (IN) | payer OTHER ==
[2022-04-09 09:05] VITALS: BMI 39.1
[2022-04-09] MEDS ORDERED: BISMUTH SUBSALICYLATE 262 MG/15 ML BTL PO PRN (10:03)
[2022-04-09] MEDS ORDERED: ACETAMINOPHEN 325 MG TABLET (FP) PO PRN ×2 (10:03)
[2022-04-09] MEDS ORDERED: hydrOXYzine PAMOATE 25 MG CAPSULE (FP) PO PRN (10:03)
[2022-04-09] MEDS ORDERED: MAGNESIUM CITRATE 300 ML BOTTLE PO PRN (10:03)
[2022-04-09] MEDS ORDERED: METHOCARBAMOL 500 MG TABLET PO PRN (10:03)
[2022-04-09] MEDS ORDERED: LOPERAMIDE HCL 2 MG CAPSULE PO PRN (10:03)
[2022-04-09] MEDS ORDERED: IBUPROFEN 400 MG TABLET (FP) PO PRN (10:03)
[2022-04-09] MEDS ORDERED: DICYCLOMINE HCL 10 MG CAPSULE PO PRN (10:03)
[2022-04-09] MEDS ORDERED: MAGNESIUM HYDROX 2400MG/30ML ORAL SUSPENSION 30 ML CUP PO PRN (10:03)
[2022-04-09] MEDS ORDERED: NALOXONE HCL (KLOXXADO) 8 MG SPRAY NS PRN (10:03)
[2022-04-09] MEDS ORDERED: MAG HYDROX/AL HYDROX/SIMETH 30 ML UNIT-DOSE CUP PO PRN (10:03)
[2022-04-09] MEDS ORDERED: ONDANSETRON *ODT* 4 MG TABLET SL PRN (10:03)
[2022-04-09] MEDS ORDERED: BENZOCAINE/MENTHOL (CHLORASEPTIC ) LOZENGE MM PRN (10:03)
[2022-04-09] MEDS ORDERED: IBUPROFEN 600 MG TABLET (FP) PO PRN (10:03)
[2022-04-09] MEDS ORDERED: NICOTINE 10 MG CARTRIDGE (INHALER) IH PRN (10:03)
[2022-04-09] MEDS ORDERED: ALBUTEROL SO4 HFA INHALER IH PRN (14:58)
[2022-04-09 14:59] LABS: HEMATOCRIT 40.7 % (35.4-49); HEMOGLOBIN 13.5 GM/dL (11.7-16.9); MCH 29.2 pg (25.7-33.7); MCHC 33.2 g/dl (32.0-35.9); MEAN PLT VOLUME 10.1 fl (7.5-11.1); PLATELET COUNT 157 10^3/uL (134-434); RBC 4.63 M/mm3 (4.00-5.60); RDW 14.6 % (11.9-15.9); WHITE BLOOD COUNT 9.1 K/mm3 (4.0-10.0)
[2022-04-09 15:13] LABS: ALBUMIN 3.8 g/dl (3.4-5.0); BLOOD UREA NITROGEN 20.1 mg/dL (7-18)
[2022-04-09 15:15] LABS: CREATININE 0.9 mg/dL (0.55-1.3)
[2022-04-09 15:16] LABS: BILIRUBIN,TOTAL 0.7 mg/dL (0.2-1); TOT PROT 7.1 g/dl (6.4-8.2)
[2022-04-09 15:58] VITALS: RESP 18
[2022-04-09] MEDS: OLANZAPINE 10 MG, OLANZAPINE 5 MG PO SCH (21:40)
[2022-04-09] MEDS: THIAMINE HCL 100 MG TABLET (FP) PO SCH (21:41)
[2022-04-09] MEDS: MELATONIN 5 MG TABLETS PO SCH (21:41)
[2022-04-09] MEDS ORDERED: PATIENT'S OWN MEDICATION (NON-FORMULARY) (Olanzapine [Olanzapine] 15 MG Tablet) PO SCH (22:00)
[2022-04-10] MEDS: PRENATAL VITAMINS W/ FOLIC ACID TABLET (FP) PO SCH (09:52)
[2022-04-10] MEDS: SERTRALINE HCL 50 MG TABLET (FP) PO SCH (09:53)
[2022-04-10] MEDS: MELATONIN 5 MG TABLETS PO SCH (21:30)
[2022-04-10] MEDS: THIAMINE HCL 100 MG TABLET (FP) PO SCH (21:30)
[2022-04-10] MEDS: OLANZAPINE 10 MG, OLANZAPINE 5 MG PO SCH (21:31)
[2022-04-11 06:53] VITALS: TEMP 96.8
[2022-04-11 07:04] VITALS: BP 138/96; PULSE 73
[2022-04-11] MEDS: PRENATAL VITAMINS W/ FOLIC ACID TABLET (FP) PO SCH (10:31)
[2022-04-11] MEDS: SERTRALINE HCL 50 MG TABLET (FP) PO SCH (10:33)
== END 2022-04-11 11:55 | disposition left against medical advice (07) | DRG 770 ==
LOC: YASAS 08:23 → UNDOADMIN 10:52 → Y3N 10:52 → Y3W 15:29
PROVIDERS: ADMIT Psychiatry & Neurology Pain Medicine; ATTEND Psychiatry & Neurology Pain Medicine
PROC: HZ42ZZZ Group Counseling for Substance Abuse Treatment, Cognitive-Behavioral (ICD-10-PCS; principal; 2022-04-09)
DX: F10.20 Alcohol dependence, uncomplicated (principal); F14.20 Cocaine dependence, uncomplicated; F16.20 Hallucinogen dependence, uncomplicated; F12.20 Cannabis dependence, uncomplicated; F17.210 Nicotine dependence, cigarettes, uncomplicated; F25.9 Schizoaffective disorder, unspecified; F31.9 Bipolar disorder, unspecified; F41.9 Anxiety disorder, unspecified; J45.20 Mild intermittent asthma, uncomplicated; G47.30 Sleep apnea, unspecified; E66.9 Obesity, unspecified; Z68.39 Body mass index [BMI] 39.0-39.9, adult
CPT/HCPCS: 36415; 80053; 85027; 86780; 87811; C9803-CS; U0003; U0005

== ENCOUNTER 2022-05-22 23:25 | Inpatient (IN) | payer OTHER ==
[2022-05-22 23:54] VITALS: BMI 37.2
[2022-05-23] MEDS ORDERED: BISMUTH SUBSALICYLATE 524 MG/30 ML PO PRN (00:31)
[2022-05-23] MEDS ORDERED: POLYETHYLENE GLYCOL (HEALTHYLAX) 3350 17 GM PACKET PO PRN (00:31)
[2022-05-23] MEDS ORDERED: NICOTINE 10 MG CARTRIDGE (INHALER) IH PRN (00:31)
[2022-05-23] MEDS ORDERED: BENZOCAINE/MENTHOL (CHLORASEPTIC ) LOZENGE MM PRN (00:31)
[2022-05-23] MEDS ORDERED: MAGNESIUM HYDROX 2400MG/30ML ORAL SUSPENSION 30 ML CUP PO PRN (00:31)
[2022-05-23] MEDS ORDERED: MAG HYDROX/AL HYDROX/SIMETH 30 ML UNIT-DOSE CUP PO PRN (00:31)
[2022-05-23] MEDS ORDERED: ONDANSETRON *ODT* 4 MG TABLET SL PRN (00:31)
[2022-05-23] MEDS ORDERED: NALOXONE HCL (KLOXXADO) 8 MG SPRAY NS PRN (00:31)
[2022-05-23] MEDS ORDERED: LOPERAMIDE HCL 2 MG CAPSULE PO PRN (00:31)
[2022-05-23] MEDS ORDERED: ACETAMINOPHEN 325 MG TABLET (FP) PO PRN ×2 (00:31)
[2022-05-23] MEDS ORDERED: DICYCLOMINE HCL 10 MG CAPSULE PO PRN (00:31)
[2022-05-23] MEDS ORDERED: IBUPROFEN 400 MG TABLET (FP) PO PRN (00:31)
[2022-05-23] MEDS ORDERED: ALBUTEROL SO4 HFA INHALER IH PRN ×2 (00:35→09:19)
[2022-05-23] MEDS: METHOCARBAMOL 500 MG TABLET PO PRN (01:18)
[2022-05-23] MEDS: IBUPROFEN 600 MG TABLET (FP) PO PRN (01:18)
[2022-05-23] MEDS: chlordiazePOXIDE HCL 25 MG CAPSULE PO PRN (01:19)
[2022-05-23] MEDS: chlordiazePOXIDE HCL 25 MG CAPSULE PO SCH ×4 (05:24→22:08)
[2022-05-23] MEDS: PRENATAL VITAMINS W/ FOLIC ACID TABLET (FP) PO SCH (10:25)
[2022-05-23 15:46] LABS: HEMATOCRIT 41.2 % (35.4-49); HEMOGLOBIN 13.3 GM/dL (11.7-16.9); MCH 28.5 pg (25.7-33.7); MCHC 32.4 g/dl (32.0-35.9); MEAN CELL VOLUME 88.1 fl (80-96); MEAN PLT VOLUME 9.8 fl (7.5-11.1); PLATELET COUNT 196 10^3/uL (134-434); RBC 4.68 M/mm3 (4.00-5.60); WHITE BLOOD COUNT 8.2 K/mm3 (4.0-10.0)
[2022-05-23 15:50] LABS: BLOOD UREA NITROGEN 18.4 mg/dL (7-18)
[2022-05-23 15:51] LABS: ALBUMIN 3.6 g/dl (3.4-5.0); CALCIUM 8.9 mg/dL (8.5-10.1)
[2022-05-23 15:55] LABS: CREATININE 0.8 mg/dL (0.55-1.3)
[2022-05-23 15:56] LABS: BILIRUBIN,TOTAL 0.4 mg/dL (0.2-1); TOT PROT 6.8 g/dl (6.4-8.2)
[2022-05-23] MEDS: THIAMINE HCL 100 MG TABLET (FP) PO SCH (22:08)
[2022-05-23] MEDS: MELATONIN 5 MG TABLETS PO SCH (22:08)
[2022-05-24] MEDS: chlordiazePOXIDE HCL 25 MG CAPSULE PO PRN (05:42)
[2022-05-24] MEDS: chlordiazePOXIDE HCL 25 MG CAPSULE PO SCH ×4 (06:17→22:14)
[2022-05-24] MEDS: PRENATAL VITAMINS W/ FOLIC ACID TABLET (FP) PO SCH (10:19)
[2022-05-24] MEDS: METHOCARBAMOL 500 MG TABLET PO PRN (22:12)
[2022-05-24] MEDS: THIAMINE HCL 100 MG TABLET (FP) PO SCH (22:14)
[2022-05-24] MEDS: MELATONIN 5 MG TABLETS PO SCH (22:14)
[2022-05-25] MEDS ORDERED: chlordiazePOXIDE HCL 10 MG CAPSULE PO PRN
[2022-05-25] MEDS: chlordiazePOXIDE HCL 10 MG CAPSULE PO SCH ×4 (05:39→22:05)
[2022-05-25] MEDS: PRENATAL VITAMINS W/ FOLIC ACID TABLET (FP) PO SCH (10:24)
[2022-05-25] MEDS: MELATONIN 5 MG TABLETS PO SCH (22:04)
[2022-05-25] MEDS: THIAMINE HCL 100 MG TABLET (FP) PO SCH (22:04)
[2022-05-26] MEDS: chlordiazePOXIDE HCL 10 MG CAPSULE PO SCH ×2 (05:50→17:31)
[2022-05-26] MEDS: PRENATAL VITAMINS W/ FOLIC ACID TABLET (FP) PO SCH (10:23)
[2022-05-26 21:34] VITALS: RESP 18
[2022-05-26] MEDS: MELATONIN 5 MG TABLETS PO SCH (21:43)
[2022-05-26] MEDS: THIAMINE HCL 100 MG TABLET (FP) PO SCH (21:43)
[2022-05-26] MEDS: METHOCARBAMOL 500 MG TABLET PO PRN (21:45)
[2022-05-26] MEDS: IBUPROFEN 600 MG TABLET (FP) PO PRN (21:45)
[2022-05-27] MEDS ORDERED: chlordiazePOXIDE HCL 10 MG CAPSULE PO ONE (05:00)
[2022-05-27 09:21] VITALS: BP 151/56; PULSE 66; TEMP 97.5
[2022-05-27] MEDS: PRENATAL VITAMINS W/ FOLIC ACID TABLET (FP) PO SCH (10:31)
[2022-05-27] MEDS ORDERED: OLANZapine 5 MG TABLET PO SCH (22:00)
[2022-05-28] MEDS ORDERED: SERTRALINE HCL 50 MG TABLET (FP) PO SCH (10:00)
== END 2022-05-27 12:30 | disposition home or self-care (01) | DRG 774 ==
LOC: YASAS 23:25 → Y3N 05-23 00:55
PROVIDERS: ADMIT Allergy & Immunology; ATTEND Surgery
PROC: HZ2ZZZZ Detoxification Services for Substance Abuse Treatment (ICD-10-PCS; principal; 2022-05-23)
DX: F10.230 Alcohol dependence with withdrawal, uncomplicated (principal); F14.20 Cocaine dependence, uncomplicated; F16.20 Hallucinogen dependence, uncomplicated; F17.210 Nicotine dependence, cigarettes, uncomplicated; F25.1 Schizoaffective disorder, depressive type; F31.9 Bipolar disorder, unspecified; F41.9 Anxiety disorder, unspecified; R73.9 Hyperglycemia, unspecified; J45.20 Mild intermittent asthma, uncomplicated; E66.01 Morbid (severe) obesity due to excess calories; Z68.37 Body mass index [BMI] 37.0-37.9, adult; Z86.69 Personal history of other diseases of the nervous system and sense organs; Z56.0 Unemployment, unspecified
CPT/HCPCS: 36415; 80053; 85027; 86780; C9803-CS; U0003; U0005

== ENCOUNTER 2022-06-20 04:13 | Inpatient (IN) | payer OTHER ==
[2022-06-20 04:40] VITALS: BMI 41.6
[2022-06-20] MEDS ORDERED: LOPERAMIDE HCL 2 MG CAPSULE PO PRN (06:39)
[2022-06-20] MEDS ORDERED: POLYETHYLENE GLYCOL (HEALTHYLAX) 3350 17 GM PACKET PO PRN (06:39)
[2022-06-20] MEDS ORDERED: MAGNESIUM HYDROX 2400MG/30ML ORAL SUSPENSION 30 ML CUP PO PRN (06:39)
[2022-06-20] MEDS ORDERED: NALOXONE HCL (KLOXXADO) 8 MG SPRAY NS PRN (06:39)
[2022-06-20] MEDS ORDERED: IBUPROFEN 600 MG TABLET (FP) PO PRN (06:39)
[2022-06-20] MEDS ORDERED: BISMUTH SUBSALICYLATE 524 MG/30 ML PO PRN (06:39)
[2022-06-20] MEDS ORDERED: IBUPROFEN 400 MG TABLET (FP) PO PRN (06:39)
[2022-06-20] MEDS ORDERED: ACETAMINOPHEN 325 MG TABLET (FP) PO PRN ×2 (06:39)
[2022-06-20] MEDS ORDERED: DICYCLOMINE HCL 10 MG CAPSULE PO PRN (06:39)
[2022-06-20] MEDS ORDERED: BENZOCAINE/MENTHOL (CHLORASEPTIC ) LOZENGE MM PRN (06:39)
[2022-06-20] MEDS ORDERED: NICOTINE 10 MG CARTRIDGE (INHALER) IH PRN (06:39)
[2022-06-20] MEDS ORDERED: MAG HYDROX/AL HYDROX/SIMETH 30 ML UNIT-DOSE CUP PO PRN (06:39)
[2022-06-20] MEDS ORDERED: ONDANSETRON *ODT* 4 MG TABLET SL PRN (06:39)
[2022-06-20] MEDS: METHOCARBAMOL 500 MG TABLET PO PRN ×2 (10:02→17:24)
[2022-06-20] MEDS: PRENATAL VITAMINS W/ FOLIC ACID TABLET (FP) PO SCH (10:02)
[2022-06-20] MEDS ORDERED: ALBUTEROL SO4 HFA INHALER IH PRN (11:30)
[2022-06-20] MEDS ORDERED: chlordiazePOXIDE HCL 25 MG CAPSULE PO PRN (11:30)
[2022-06-20] MEDS: chlordiazePOXIDE HCL 25 MG CAPSULE PO SCH ×3 (12:38→22:10)
[2022-06-20] MEDS ORDERED: THIAMINE HCL 100 MG TABLET (FP) PO SCH (22:00)
[2022-06-20] MEDS ORDERED: OLANZapine 7.5 MG TABLET PO SCH (22:00)
[2022-06-20] MEDS ORDERED: MELATONIN 5 MG TABLETS PO SCH (22:00)
[2022-06-20] MEDS ORDERED: OLANZapine 5 MG TABLET PO SCH ×2 (22:55→23:00)
[2022-06-21] MEDS: chlordiazePOXIDE HCL 25 MG CAPSULE PO SCH ×2 (06:14→10:54)
[2022-06-21] MEDS ORDERED: SERTRALINE HCL 50 MG TABLET (FP) PO SCH (10:00)
[2022-06-21] MEDS: PRENATAL VITAMINS W/ FOLIC ACID TABLET (FP) PO SCH (10:54)
[2022-06-21 12:12] LABS: CALCIUM 8.5 mg/dL (8.5-10.1); HEMATOCRIT 39.2 % (35.4-49); HEMOGLOBIN 12.8 GM/dL (11.7-16.9); MCH 28.5 pg (25.7-33.7); MCHC 32.6 g/dl (32.0-35.9); MEAN CELL VOLUME 87.4 fl (80-96); MEAN PLT VOLUME 10.3 fl (7.5-11.1); PLATELET COUNT 157 10^3/uL (134-434); RBC 4.49 M/mm3 (4.00-5.60); RDW 15.2 % (11.9-15.9); WHITE BLOOD COUNT 9.7 K/mm3 (4.0-10.0)
[2022-06-21 12:13] LABS: ALBUMIN 3.5 g/dl (3.4-5.0); BLOOD UREA NITROGEN 26.2 mg/dL (7-18)
[2022-06-21 12:15] LABS: CREATININE 0.9 mg/dL (0.55-1.3)
[2022-06-21 12:16] LABS: BILIRUBIN,TOTAL 0.2 mg/dL (0.2-1)
[2022-06-21 12:17] LABS: TOT PROT 6.7 g/dl (6.4-8.2)
[2022-06-21 12:55] VITALS: BP 137/82; PULSE 81; RESP 20; TEMP 97.8
[2022-06-22] MEDS ORDERED: chlordiazePOXIDE HCL 25 MG CAPSULE PO SCH (05:00)
[2022-06-23] MEDS ORDERED: chlordiazePOXIDE HCL 10 MG CAPSULE PO PRN
[2022-06-23] MEDS ORDERED: chlordiazePOXIDE HCL 10 MG CAPSULE PO SCH (05:00)
[2022-06-24] MEDS ORDERED: chlordiazePOXIDE HCL 10 MG CAPSULE PO SCH (05:00)
[2022-06-25] MEDS ORDERED: chlordiazePOXIDE HCL 10 MG CAPSULE PO ONE (05:00)
== END 2022-06-21 17:20 | disposition left against medical advice (07) | DRG 770 ==
LOC: YASAS 04:13 → Y3N 07:05
PROVIDERS: ADMIT Allergy & Immunology; ATTEND Surgery
PROC: HZ2ZZZZ Detoxification Services for Substance Abuse Treatment (ICD-10-PCS; principal; 2022-06-20)
DX: F10.230 Alcohol dependence with withdrawal, uncomplicated (principal); F14.20 Cocaine dependence, uncomplicated; F16.20 Hallucinogen dependence, uncomplicated; F12.20 Cannabis dependence, uncomplicated; F17.210 Nicotine dependence, cigarettes, uncomplicated; F31.9 Bipolar disorder, unspecified; F25.9 Schizoaffective disorder, unspecified; F41.8 Other specified anxiety disorders; G47.30 Sleep apnea, unspecified; J45.909 Unspecified asthma, uncomplicated; E66.01 Morbid (severe) obesity due to excess calories; Z68.41 Body mass index [BMI] 40.0-44.9, adult
CPT/HCPCS: 36415; 80053; 85027; 86780; C9803-CS; U0003; U0005

== ENCOUNTER 2022-09-16 23:43 | Inpatient (IN) | payer OTHER ==
[2022-09-17] MEDS ORDERED: ALBUTEROL SO4 HFA INHALER IH PRN (00:34)
[2022-09-17] MEDS ORDERED: LOPERAMIDE HCL 2 MG CAPSULE PO PRN (00:39)
[2022-09-17] MEDS ORDERED: IBUPROFEN 400 MG TABLET (FP) PO PRN (00:39)
[2022-09-17] MEDS ORDERED: BENZOCAINE/MENTHOL (CHLORASEPTIC ) LOZENGE MM PRN (00:39)
[2022-09-17] MEDS ORDERED: DICYCLOMINE HCL 10 MG CAPSULE PO PRN (00:39)
[2022-09-17] MEDS ORDERED: MAG HYDROX/AL HYDROX/SIMETH 30 ML UNIT-DOSE CUP PO PRN (00:39)
[2022-09-17] MEDS ORDERED: NICOTINE 10 MG CARTRIDGE (INHALER) IH PRN (00:39)
[2022-09-17] MEDS ORDERED: BENZONATATE 200 MG CAPSULE PO PRN (00:39)
[2022-09-17] MEDS ORDERED: BISMUTH SUBSALICYLATE 524 MG/30 ML PO PRN (00:39)
[2022-09-17] MEDS ORDERED: ONDANSETRON *ODT* 4 MG TABLET SL PRN (00:39)
[2022-09-17] MEDS ORDERED: P-EPHED 60MG/TRIPROLIDI 2.5MG TABLET PO PRN (00:39)
[2022-09-17] MEDS ORDERED: guaiFENesin 600 MG TABLET.ER (FP) PO PRN (00:39)
[2022-09-17] MEDS ORDERED: MAGNESIUM HYDROX 2400MG/30ML ORAL SUSPENSION 30 ML CUP PO PRN (00:39)
[2022-09-17] MEDS ORDERED: ACETAMINOPHEN 325 MG TABLET (FP) PO PRN (00:39)
[2022-09-17] MEDS ORDERED: POLYETHYLENE GLYCOL (HEALTHYLAX) 3350 17 GM PACKET PO PRN (00:39)
[2022-09-17] MEDS ORDERED: NICOTINE POLACRILEX 2 MG GUM BUC PRN (00:39)
[2022-09-17] MEDS ORDERED: chlordiazePOXIDE HCL 25 MG CAPSULE PO PRN (00:41)
[2022-09-17 01:07] VITALS: BMI 40.1
[2022-09-17] MEDS ORDERED: chlordiazePOXIDE HCL 25 MG CAPSULE PO ONE (02:00)
[2022-09-17] MEDS: chlordiazePOXIDE HCL 25 MG CAPSULE PO SCH ×4 (06:08→22:34)
[2022-09-17] MEDS: PRENATAL VITAMINS W/ FOLIC ACID TABLET (FP) PO SCH (10:24)
[2022-09-17] MEDS: SERTRALINE HCL 50 MG TABLET (FP) PO SCH (11:13)
[2022-09-17] MEDS ORDERED: OLANZapine 7.5 MG TABLET PO SCH (22:00)
[2022-09-17] MEDS: THIAMINE HCL 100 MG TABLET (FP) PO SCH (22:34)
[2022-09-17] MEDS: MELATONIN 5 MG TABLETS PO SCH (22:34)
[2022-09-17] MEDS: OLANZapine 5 MG TABLET PO SCH (22:58)
[2022-09-18] MEDS: chlordiazePOXIDE HCL 25 MG CAPSULE PO SCH ×4 (05:32→22:22)
[2022-09-18] MEDS: PRENATAL VITAMINS W/ FOLIC ACID TABLET (FP) PO SCH (10:31)
[2022-09-18] MEDS: SERTRALINE HCL 50 MG TABLET (FP) PO SCH (10:32)
[2022-09-18] MEDS: IBUPROFEN 600 MG TABLET (FP) PO PRN (10:34)
[2022-09-18 12:30] LABS: HEMATOCRIT 42.7 % (35.4-49); HEMOGLOBIN 14.2 GM/dL (11.7-16.9); MCH 28.5 pg (25.7-33.7); MCHC 33.3 g/dl (32.0-35.9); MEAN CELL VOLUME 85.7 fl (80-96); MEAN PLT VOLUME 9.8 fl (7.5-11.1); PLATELET COUNT 156 10^3/uL (134-434); RBC 4.98 M/mm3 (4.00-5.60); RDW 15.3 % (11.9-15.9); WHITE BLOOD COUNT 6.1 K/mm3 (4.0-10.0)
[2022-09-18 12:39] LABS: CALCIUM 9.4 mg/dL (8.5-10.1)
[2022-09-18 12:40] LABS: ALBUMIN 3.6 g/dl (3.4-5.0); BLOOD UREA NITROGEN 10.7 mg/dL (7-18)
[2022-09-18 12:43] LABS: CREATININE 0.8 mg/dL (0.55-1.3)
[2022-09-18 12:44] LABS: BILIRUBIN,TOTAL 0.4 mg/dL (0.2-1); TOT PROT 7.1 g/dl (6.4-8.2)
[2022-09-18] MEDS: MELATONIN 5 MG TABLETS PO SCH (22:21)
[2022-09-18] MEDS: OLANZapine 5 MG TABLET PO SCH (22:22)
[2022-09-18] MEDS: THIAMINE HCL 100 MG TABLET (FP) PO SCH (22:22)
[2022-09-19] MEDS ORDERED: chlordiazePOXIDE HCL 10 MG CAPSULE PO PRN
[2022-09-19] MEDS: chlordiazePOXIDE HCL 10 MG CAPSULE PO SCH ×4 (05:22→23:34)
[2022-09-19] MEDS: SERTRALINE HCL 50 MG TABLET (FP) PO SCH (10:34)
[2022-09-19] MEDS: PRENATAL VITAMINS W/ FOLIC ACID TABLET (FP) PO SCH (10:34)
[2022-09-19] MEDS: IBUPROFEN 600 MG TABLET (FP) PO PRN (10:35)
[2022-09-19] MEDS: OLANZapine 5 MG TABLET PO SCH (22:33)
[2022-09-19] MEDS: THIAMINE HCL 100 MG TABLET (FP) PO SCH (22:33)
[2022-09-19] MEDS: MELATONIN 5 MG TABLETS PO SCH (22:33)
[2022-09-20] MEDS ORDERED: chlordiazePOXIDE HCL 10 MG CAPSULE PO SCH (05:00)
[2022-09-20 08:54] VITALS: BP 157/96; PULSE 100; RESP 20; TEMP 97.1
[2022-09-20] MEDS: PRENATAL VITAMINS W/ FOLIC ACID TABLET (FP) PO SCH (10:30)
[2022-09-20] MEDS: SERTRALINE HCL 50 MG TABLET (FP) PO SCH (10:30)
[2022-09-21] MEDS ORDERED: chlordiazePOXIDE HCL 10 MG CAPSULE PO ONE (05:00)
== END 2022-09-20 12:05 | disposition home or self-care (01) | DRG 775 ==
LOC: YASAS 23:43 → Y6N 09-17 01:26
PROVIDERS: ADMIT Allergy & Immunology; ATTEND Surgery
PROC: HZ2ZZZZ Detoxification Services for Substance Abuse Treatment (ICD-10-PCS; principal; 2022-09-17)
DX: F10.230 Alcohol dependence with withdrawal, uncomplicated (principal); F12.20 Cannabis dependence, uncomplicated; F17.210 Nicotine dependence, cigarettes, uncomplicated; F19.282 Other psychoactive substance dependence with psychoactive substance-induced sleep disorder; F19.280 Other psychoactive substance dependence with psychoactive substance-induced anxiety disorder; G47.30 Sleep apnea, unspecified; J45.909 Unspecified asthma, uncomplicated; E66.01 Morbid (severe) obesity due to excess calories; Z68.41 Body mass index [BMI] 40.0-44.9, adult; Z86.69 Personal history of other diseases of the nervous system and sense organs
CPT/HCPCS: 36415; 80053; 85027; 86780; C9803-CS; U0003; U0005

== ENCOUNTER 2022-10-07 05:00 | Inpatient (IN) | payer OTHER ==
[2022-10-07 05:11] VITALS: BMI 44.3
[2022-10-07] MEDS ORDERED: NALOXONE HCL 0.4 MG/ML VIAL IM PRN (05:17)
[2022-10-07] MEDS ORDERED: guaiFENesin 600 MG TABLET.ER (FP) PO PRN (05:17)
[2022-10-07] MEDS ORDERED: NICOTINE POLACRILEX 2 MG GUM BUC PRN (05:17)
[2022-10-07] MEDS ORDERED: NALOXONE HCL (KLOXXADO) 8 MG SPRAY NS PRN (05:17)
[2022-10-07] MEDS ORDERED: chlordiazePOXIDE HCL 25 MG CAPSULE PO PRN (05:17)
[2022-10-07] MEDS ORDERED: BENZONATATE 200 MG CAPSULE PO PRN (05:17)
[2022-10-07] MEDS ORDERED: POLYETHYLENE GLYCOL (HEALTHYLAX) 3350 17 GM PACKET PO PRN (05:17)
[2022-10-07] MEDS ORDERED: IBUPROFEN 400 MG TABLET (FP) PO PRN (05:17)
[2022-10-07] MEDS ORDERED: DICYCLOMINE HCL 10 MG CAPSULE PO PRN (05:17)
[2022-10-07] MEDS ORDERED: LOPERAMIDE HCL 2 MG CAPSULE PO PRN (05:17)
[2022-10-07] MEDS ORDERED: ACETAMINOPHEN 325 MG TABLET (FP) PO PRN (05:17)
[2022-10-07] MEDS ORDERED: MAGNESIUM HYDROX 2400MG/30ML ORAL SUSPENSION 30 ML CUP PO PRN (05:17)
[2022-10-07] MEDS ORDERED: BISMUTH SUBSALICYLATE 524 MG/30 ML PO PRN (05:17)
[2022-10-07] MEDS ORDERED: ONDANSETRON *ODT* 4 MG TABLET SL PRN (05:17)
[2022-10-07] MEDS ORDERED: BENZOCAINE/MENTHOL (CHLORASEPTIC ) LOZENGE MM PRN (05:17)
[2022-10-07] MEDS ORDERED: MAG HYDROX/AL HYDROX/SIMETH 30 ML UNIT-DOSE CUP PO PRN (05:17)
[2022-10-07] MEDS: NICOTINE 14 MG/24 HOURS TOPICAL PATCH TD SCH (10:11)
[2022-10-07] MEDS: PRENATAL VITAMINS W/ FOLIC ACID TABLET (FP) PO SCH (10:11)
[2022-10-07] MEDS: chlordiazePOXIDE HCL 25 MG CAPSULE PO SCH ×3 (10:12→22:22)
[2022-10-07] MEDS ORDERED: ALBUTEROL SO4 HFA INHALER IH PRN (10:56)
[2022-10-07] MEDS: IBUPROFEN 600 MG TABLET (FP) PO PRN ×2 (12:11→20:06)
[2022-10-07] MEDS: THIAMINE HCL 100 MG TABLET (FP) PO SCH (22:22)
[2022-10-07] MEDS: MELATONIN 5 MG TABLETS PO SCH (22:22)
[2022-10-08] MEDS: chlordiazePOXIDE HCL 25 MG CAPSULE PO SCH ×5 (05:37→22:58)
[2022-10-08] MEDS: IBUPROFEN 600 MG TABLET (FP) PO PRN ×2 (05:39→22:57)
[2022-10-08] MEDS: METHOCARBAMOL 500 MG TABLET PO PRN (05:39)
[2022-10-08 09:57] LABS: POTASSIUM 3.6 mmol/L (3.5-5.1)
[2022-10-08 09:59] LABS: HEMATOCRIT 37.5 % (35.4-49); HEMOGLOBIN 12.6 GM/dL (11.7-16.9); MCH 28.5 pg (25.7-33.7); MCHC 33.7 g/dl (32.0-35.9); MEAN CELL VOLUME 84.6 fl (80-96); MEAN PLT VOLUME 9.2 fl (7.5-11.1); PLATELET COUNT 158 10^3/uL (134-434); RBC 4.44 M/mm3 (4.00-5.60); RDW 16.1 % (11.9-15.9); WHITE BLOOD COUNT 11.3 K/mm3 (4.0-10.0)
[2022-10-08 10:00] LABS: ALBUMIN 3.3 g/dl (3.4-5.0); BLOOD UREA NITROGEN 16.2 mg/dL (7-18); CALCIUM 8.3 mg/dL (8.5-10.1)
[2022-10-08 10:04] LABS: BILIRUBIN,TOTAL 0.8 mg/dL (0.2-1); CREATININE 0.7 mg/dL (0.55-1.3); TOT PROT 6.8 g/dl (6.4-8.2)
[2022-10-08] MEDS: NICOTINE 14 MG/24 HOURS TOPICAL PATCH TD SCH (10:41)
[2022-10-08] MEDS: PRENATAL VITAMINS W/ FOLIC ACID TABLET (FP) PO SCH (10:41)
[2022-10-08] MEDS ORDERED: cloNIDine HCL 0.1 MG TABLET PO ONE (12:58)
[2022-10-08] MEDS: MELATONIN 5 MG TABLETS PO SCH ×2 (22:39→22:57)
[2022-10-08] MEDS: THIAMINE HCL 100 MG TABLET (FP) PO SCH ×2 (22:39→22:57)
[2022-10-09] MEDS: chlordiazePOXIDE HCL 25 MG CAPSULE PO SCH ×4 (05:41→22:03)
[2022-10-09] MEDS: PRENATAL VITAMINS W/ FOLIC ACID TABLET (FP) PO SCH (10:28)
[2022-10-09] MEDS: METHOCARBAMOL 500 MG TABLET PO PRN (10:28)
[2022-10-09] MEDS: NICOTINE 14 MG/24 HOURS TOPICAL PATCH TD SCH (10:30)
[2022-10-09 10:49] LABS: HEMATOCRIT 37.8 % (35.4-49); HEMOGLOBIN 12.5 GM/dL (11.7-16.9); MCH 28.3 pg (25.7-33.7); MCHC 33.2 g/dl (32.0-35.9); MEAN CELL VOLUME 85.4 fl (80-96); MEAN PLT VOLUME 9.1 fl (7.5-11.1); PLATELET COUNT 152 10^3/uL (134-434); RBC 4.43 M/mm3 (4.00-5.60); RDW 16.3 % (11.9-15.9); WHITE BLOOD COUNT 9.5 K/mm3 (4.0-10.0)
[2022-10-09 10:53] LABS: URINE APPEARANCE CLEAR; URINE BILIRUBIN NEGATIVE (NEGATIVE); URINE COLOR YELLOW; URINE GLUCOSE (UA) NEGATIVE (NEGATIVE); URINE KETONE NEGATIVE (NEGATIVE); URINE LEUK ESTERASE NEGATIVE (NEGATIVE); URINE NITRITE NEGATIVE (NEGATIVE); URINE PROTEIN NEGATIVE (NEGATIVE)
[2022-10-09] MEDS: MELATONIN 5 MG TABLETS PO SCH (22:03)
[2022-10-09] MEDS: THIAMINE HCL 100 MG TABLET (FP) PO SCH (22:03)
[2022-10-09] MEDS: IBUPROFEN 600 MG TABLET (FP) PO PRN (22:05)
[2022-10-10] MEDS ORDERED: chlordiazePOXIDE HCL 10 MG CAPSULE PO PRN
[2022-10-10] MEDS: chlordiazePOXIDE HCL 10 MG CAPSULE PO SCH ×2 (05:27→10:23)
[2022-10-10] MEDS: NICOTINE 14 MG/24 HOURS TOPICAL PATCH TD SCH (10:23)
[2022-10-10] MEDS: PRENATAL VITAMINS W/ FOLIC ACID TABLET (FP) PO SCH (10:23)
[2022-10-10] MEDS: IBUPROFEN 600 MG TABLET (FP) PO PRN (10:24)
[2022-10-10 13:42] VITALS: BP 163/99; PULSE 91; RESP 17; TEMP 97.4
[2022-10-10] MEDS ORDERED: SERTRALINE HCL 50 MG TABLET (FP) PO SCH (14:30)
[2022-10-10] MEDS ORDERED: OLANZapine 7.5 MG TABLET PO SCH (22:00)
[2022-10-11] MEDS ORDERED: chlordiazePOXIDE HCL 10 MG CAPSULE PO SCH (05:00)
[2022-10-12] MEDS ORDERED: chlordiazePOXIDE HCL 10 MG CAPSULE PO ONE (05:00)
== END 2022-10-10 13:35 | disposition left against medical advice (07) | DRG 770 ==
LOC: YASAS 05:00 → Y6N 06:05
PROVIDERS: ADMIT Surgery; ATTEND Surgery
PROC: HZ2ZZZZ Detoxification Services for Substance Abuse Treatment (ICD-10-PCS; principal; 2022-10-07)
DX: F10.230 Alcohol dependence with withdrawal, uncomplicated (principal); F14.20 Cocaine dependence, uncomplicated; F16.20 Hallucinogen dependence, uncomplicated; F12.20 Cannabis dependence, uncomplicated; F17.210 Nicotine dependence, cigarettes, uncomplicated; F31.9 Bipolar disorder, unspecified; F25.9 Schizoaffective disorder, unspecified; F10.24 Alcohol dependence with alcohol-induced mood disorder; F19.282 Other psychoactive substance dependence with psychoactive substance-induced sleep disorder; G47.33 Obstructive sleep apnea (adult) (pediatric); E66.01 Morbid (severe) obesity due to excess calories; Z68.41 Body mass index [BMI] 40.0-44.9, adult; S52.571D Other intraarticular fracture of lower end of right radius, subsequent encounter for closed fracture with routine healing; W19.XXXD Unspecified fall, subsequent encounter
CPT/HCPCS: 36415; 73110-TC-RT-FY; 80053; 81003; 85027; 86780; 87811; C9803-CS; Q0162; U0003; U0005

== ENCOUNTER 2022-10-08 16:19 | Emergency (ER) | payer OTHER ==
[2022-10-08 16:32] VITALS: BP 131/81; PULSE 77; RESP 20; TEMP 98.5; BMI 39.9
[2022-10-08] MEDS ORDERED: KETOROLAC TROMETHAMINE 30 MG/1 ML VIAL IM ONE (21:30)
[2022-10-08] MEDS ORDERED: KETOROLAC TROMETHAMINE 30 MG/1 ML VIAL ONE (21:52)
== END 2022-10-08 22:01 | disposition home or self-care (01) ==
LOC: JERFT 16:19 → JER 16:19
PROC: 3E0233Z Introduction of Anti-inflammatory into Muscle, Percutaneous Approach (ICD-10-PCS; principal; 2022-10-08)
PROC: 2W3CX1Z Immobilization of Right Lower Arm using Splint (ICD-10-PCS; 2022-10-08)
DX: S52.571A Other intraarticular fracture of lower end of right radius, initial encounter for closed fracture (principal); M25.531 Pain in right wrist; W01.0XXA Fall on same level from slipping, tripping and stumbling without subsequent striking against object, initial encounter; Y92.89 Other specified places as the place of occurrence of the external cause
CPT/HCPCS: 73110-TC-RT-FY; 73130-TC-RT-FY; 99284-25

== ENCOUNTER 2023-04-16 19:25 | Inpatient (IN) | payer OTHER ==
[2023-04-16 20:51] VITALS: BMI 42.0
[2023-04-16] MEDS ORDERED: BENZOCAINE/MENTHOL (CHLORASEPTIC ) LOZENGE MM PRN (21:28)
[2023-04-16] MEDS ORDERED: ACETAMINOPHEN 325 MG TABLET (FP) PO PRN (21:28)
[2023-04-16] MEDS ORDERED: P-EPHED 60MG/TRIPROLIDI 2.5MG TABLET PO PRN (21:28)
[2023-04-16] MEDS ORDERED: MAGNESIUM HYDROX 2400MG/30ML ORAL SUSPENSION 30 ML CUP PO PRN (21:28)
[2023-04-16] MEDS ORDERED: IBUPROFEN 400 MG TABLET (FP) PO PRN (21:28)
[2023-04-16] MEDS ORDERED: MAG HYDROX/AL HYDROX/SIMETH 30 ML UNIT-DOSE CUP PO PRN (21:28)
[2023-04-16] MEDS ORDERED: NICOTINE POLACRILEX 2 MG GUM BUC PRN (21:28)
[2023-04-16] MEDS ORDERED: BENZONATATE 200 MG CAPSULE PO PRN (21:28)
[2023-04-16] MEDS ORDERED: guaiFENesin 600 MG TABLET.ER (FP) PO PRN (21:28)
[2023-04-16] MEDS ORDERED: BISMUTH SUBSALICYLATE 524 MG/30 ML PO PRN (21:28)
[2023-04-16] MEDS ORDERED: ONDANSETRON *ODT* 4 MG TABLET SL PRN (21:28)
[2023-04-16] MEDS ORDERED: POLYETHYLENE GLYCOL (HEALTHYLAX) 3350 17 GM PACKET PO PRN (21:28)
[2023-04-16] MEDS ORDERED: DICYCLOMINE HCL 10 MG CAPSULE PO PRN (21:28)
[2023-04-16] MEDS ORDERED: LOPERAMIDE HCL 2 MG CAPSULE PO PRN (21:28)
[2023-04-16] MEDS ORDERED: diazePAM 5 MG TABLET PO PRN (21:32)
[2023-04-16] MEDS: MELATONIN 5 MG TABLETS PO SCH (23:00)
[2023-04-16] MEDS: THIAMINE HCL 100 MG TABLET (FP) PO SCH (23:01)
[2023-04-16] MEDS: diazePAM 5 MG TABLET PO SCH (23:01)
[2023-04-16] MEDS: IBUPROFEN 600 MG TABLET (FP) PO PRN (23:02)
[2023-04-17] MEDS: diazePAM 5 MG TABLET PO SCH ×4 (05:37→22:58)
[2023-04-17] MEDS ORDERED: ALBUTEROL SO4 HFA INHALER IH PRN (10:04)
[2023-04-17] MEDS ORDERED: cloNIDine HCL 0.1 MG TABLET PO PRN (10:05)
[2023-04-17] MEDS: PRENATAL VITAMINS W/ FOLIC ACID TABLET (FP) PO SCH (10:23)
[2023-04-17] MEDS: SERTRALINE HCL 50 MG TABLET (FP) PO SCH (10:25)
[2023-04-17] MEDS: IBUPROFEN 600 MG TABLET (FP) PO PRN (10:25)
[2023-04-17] MEDS: METHOCARBAMOL 500 MG TABLET PO PRN ×2 (10:27→17:55)
[2023-04-17 11:28] LABS: HEMATOCRIT 38.9 % (35.4-49); HEMOGLOBIN 12.2 GM/dL (11.7-16.9); MCH 28.2 pg (25.7-33.7); MCHC 31.3 g/dl (32.0-35.9); MEAN CELL VOLUME 89.9 fl (80-96); MEAN PLT VOLUME 9.6 fl (7.5-11.1); PLATELET COUNT 174 10^3/uL (134-434); RBC 4.33 M/mm3 (4.00-5.60); WHITE BLOOD COUNT 10.3 K/mm3 (4.0-10.0)
[2023-04-17 12:46] LABS: CHLORIDE 107 mmol/L (98-107); SODIUM 140 mmol/L (136-145)
[2023-04-17 12:54] LABS: ANION GAP 3 mmol/L (4-13); BLOOD UREA NITROGEN 15.9 mg/dL (7-18); CALCIUM 8.1 mg/dL (8.5-10.1); CO2 30 mmol/L (21-32); GLUCOSE,RANDOM 94 mg/dL (74-106)
[2023-04-17 12:55] LABS: SGOT/AST 44 U/L (15-37); SGPT/ALT 65 U/L (13-61)
[2023-04-17 12:56] LABS: BILIRUBIN,TOTAL 0.4 mg/dL (0.2-1)
[2023-04-17 12:57] LABS: ALK PHOS 78 U/L (45-117); CREATININE 0.7 mg/dL (0.55-1.3)
[2023-04-17] MEDS ORDERED: OLANZapine 7.5 MG TABLET PO SCH (22:00)
[2023-04-17] MEDS: MELATONIN 5 MG TABLETS PO SCH (22:57)
[2023-04-17] MEDS: THIAMINE HCL 100 MG TABLET (FP) PO SCH (22:57)
[2023-04-18] MEDS: diazePAM 5 MG TABLET PO SCH ×3 (05:58→22:09)
[2023-04-18] MEDS: PRENATAL VITAMINS W/ FOLIC ACID TABLET (FP) PO SCH (10:26)
[2023-04-18] MEDS: SERTRALINE HCL 50 MG TABLET (FP) PO SCH (10:26)
[2023-04-18] MEDS: MELATONIN 5 MG TABLETS PO SCH (22:08)
[2023-04-18] MEDS: THIAMINE HCL 100 MG TABLET (FP) PO SCH (22:09)
[2023-04-18] MEDS: OLANZapine 5 MG TABLET PO SCH (22:09)
[2023-04-19] MEDS: IBUPROFEN 600 MG TABLET (FP) PO PRN (05:47)
[2023-04-19] MEDS: diazePAM 5 MG TABLET PO SCH ×2 (05:47→17:21)
[2023-04-19] MEDS: PRENATAL VITAMINS W/ FOLIC ACID TABLET (FP) PO SCH (10:12)
[2023-04-19] MEDS: SERTRALINE HCL 50 MG TABLET (FP) PO SCH (10:13)
[2023-04-19] MEDS: METHOCARBAMOL 500 MG TABLET PO PRN (10:15)
[2023-04-19] MEDS: THIAMINE HCL 100 MG TABLET (FP) PO SCH (23:04)
[2023-04-19] MEDS: MELATONIN 5 MG TABLETS PO SCH (23:04)
[2023-04-19] MEDS: OLANZapine 5 MG TABLET PO SCH (23:04)
[2023-04-20] MEDS: IBUPROFEN 600 MG TABLET (FP) PO PRN (05:43)
[2023-04-20] MEDS: METHOCARBAMOL 500 MG TABLET PO PRN (05:43)
[2023-04-20] MEDS ORDERED: diazePAM 5 MG TABLET PO ONE (06:00)
[2023-04-20 09:25] VITALS: BP 140/89; PULSE 114; RESP 16; TEMP 98.3
[2023-04-20] MEDS: SERTRALINE HCL 50 MG TABLET (FP) PO SCH (10:33)
[2023-04-20] MEDS: PRENATAL VITAMINS W/ FOLIC ACID TABLET (FP) PO SCH (10:33)
== END 2023-04-20 11:25 | disposition home or self-care (01) | DRG 774 ==
LOC: YASAS 19:25 → Y6N 22:14
PROVIDERS: ADMIT Allergy & Immunology; ATTEND Surgery
PROC: HZ2ZZZZ Detoxification Services for Substance Abuse Treatment (ICD-10-PCS; principal; 2023-04-16)
DX: F10.230 Alcohol dependence with withdrawal, uncomplicated (principal); F14.20 Cocaine dependence, uncomplicated; F16.20 Hallucinogen dependence, uncomplicated; F12.20 Cannabis dependence, uncomplicated; F17.210 Nicotine dependence, cigarettes, uncomplicated; F19.280 Other psychoactive substance dependence with psychoactive substance-induced anxiety disorder; F25.9 Schizoaffective disorder, unspecified; G47.33 Obstructive sleep apnea (adult) (pediatric); J45.20 Mild intermittent asthma, uncomplicated; E66.01 Morbid (severe) obesity due to excess calories; Z68.41 Body mass index [BMI] 40.0-44.9, adult
CPT/HCPCS: 36415; 80053; 80307; 85027; 86780; 87635

== ENCOUNTER 2023-05-03 23:03 | Inpatient (IN) | payer OTHER ==
[2023-05-03 23:45] VITALS: BMI 37.6
[2023-05-04] MEDS ORDERED: BENZOCAINE/MENTHOL (CHLORASEPTIC ) LOZENGE MM PRN (00:06)
[2023-05-04] MEDS ORDERED: MAG HYDROX/AL HYDROX/SIMETH 30 ML UNIT-DOSE CUP PO PRN (00:06)
[2023-05-04] MEDS ORDERED: BISMUTH SUBSALICYLATE 524 MG/30 ML PO PRN (00:06)
[2023-05-04] MEDS ORDERED: ONDANSETRON *ODT* 4 MG TABLET SL PRN (00:06)
[2023-05-04] MEDS ORDERED: DICYCLOMINE HCL 10 MG CAPSULE PO PRN (00:06)
[2023-05-04] MEDS ORDERED: BENZONATATE 200 MG CAPSULE PO PRN (00:06)
[2023-05-04] MEDS ORDERED: ACETAMINOPHEN 325 MG TABLET (FP) PO PRN (00:06)
[2023-05-04] MEDS ORDERED: guaiFENesin 600 MG TABLET.ER (FP) PO PRN (00:06)
[2023-05-04] MEDS ORDERED: MAGNESIUM HYDROX 2400MG/30ML ORAL SUSPENSION 30 ML CUP PO PRN (00:06)
[2023-05-04] MEDS ORDERED: P-EPHED 60MG/TRIPROLIDI 2.5MG TABLET PO PRN (00:06)
[2023-05-04] MEDS ORDERED: LOPERAMIDE HCL 2 MG CAPSULE PO PRN (00:06)
[2023-05-04] MEDS ORDERED: POLYETHYLENE GLYCOL (HEALTHYLAX) 3350 17 GM PACKET PO PRN (00:06)
[2023-05-04] MEDS ORDERED: diazePAM 5 MG TABLET PO PRN (10:36)
[2023-05-04] MEDS: PRENATAL VITAMINS W/ FOLIC ACID TABLET (FP) PO SCH (11:09)
[2023-05-04] MEDS: diazePAM 5 MG TABLET PO SCH ×3 (11:28→22:19)
[2023-05-04] MEDS: IBUPROFEN 600 MG TABLET (FP) PO PRN ×2 (11:31→22:19)
[2023-05-04] MEDS: IBUPROFEN 400 MG TABLET (FP) PO PRN (17:29)
[2023-05-04] MEDS: THIAMINE HCL 100 MG TABLET (FP) PO SCH (22:18)
[2023-05-04] MEDS: OLANZapine 5 MG TABLET PO SCH (23:10)
[2023-05-05] MEDS: diazePAM 5 MG TABLET PO SCH ×4 (05:44→22:14)
[2023-05-05] MEDS: IBUPROFEN 600 MG TABLET (FP) PO PRN ×2 (05:46→17:45)
[2023-05-05] MEDS: SERTRALINE HCL 50 MG TABLET (FP) PO SCH (10:34)
[2023-05-05] MEDS: PRENATAL VITAMINS W/ FOLIC ACID TABLET (FP) PO SCH (10:34)
[2023-05-05] MEDS: THIAMINE HCL 100 MG TABLET (FP) PO SCH (22:13)
[2023-05-05] MEDS: OLANZapine 5 MG TABLET PO SCH (22:13)
[2023-05-06] MEDS: diazePAM 5 MG TABLET PO SCH ×3 (05:42→22:13)
[2023-05-06] MEDS: PRENATAL VITAMINS W/ FOLIC ACID TABLET (FP) PO SCH (10:27)
[2023-05-06] MEDS: SERTRALINE HCL 50 MG TABLET (FP) PO SCH (10:27)
[2023-05-06] MEDS ORDERED: ALBUTEROL SO4 HFA INHALER IH PRN (14:42)
[2023-05-06] MEDS: THIAMINE HCL 100 MG TABLET (FP) PO SCH (22:12)
[2023-05-06] MEDS: OLANZapine 5 MG TABLET PO SCH (22:12)
[2023-05-07] MEDS: IBUPROFEN 400 MG TABLET (FP) PO PRN (05:35)
[2023-05-07] MEDS: diazePAM 5 MG TABLET PO SCH ×2 (05:35→17:32)
[2023-05-07] MEDS: SERTRALINE HCL 50 MG TABLET (FP) PO SCH (10:06)
[2023-05-07] MEDS: PRENATAL VITAMINS W/ FOLIC ACID TABLET (FP) PO SCH (10:06)
[2023-05-07] MEDS: OLANZapine 5 MG TABLET PO SCH (22:16)
[2023-05-07] MEDS: THIAMINE HCL 100 MG TABLET (FP) PO SCH (22:17)
[2023-05-08 05:39] VITALS: TEMP 97.7
[2023-05-08] MEDS: IBUPROFEN 600 MG TABLET (FP) PO PRN (05:42)
[2023-05-08] MEDS ORDERED: diazePAM 5 MG TABLET PO ONE (06:00)
[2023-05-08] MEDS: SERTRALINE HCL 50 MG TABLET (FP) PO SCH (09:01)
[2023-05-08] MEDS: PRENATAL VITAMINS W/ FOLIC ACID TABLET (FP) PO SCH (09:01)
[2023-05-08 09:37] VITALS: BP 167/88; PULSE 116; RESP 20
== END 2023-05-08 09:08 | disposition home or self-care (01) | DRG 774 ==
LOC: YASAS 23:03 → Y3N 05-04 01:50
PROVIDERS: ADMIT Allergy & Immunology; ATTEND Surgery
PROC: HZ2ZZZZ Detoxification Services for Substance Abuse Treatment (ICD-10-PCS; principal; 2023-05-04)
DX: F10.230 Alcohol dependence with withdrawal, uncomplicated (principal); F14.20 Cocaine dependence, uncomplicated; F16.20 Hallucinogen dependence, uncomplicated; F12.20 Cannabis dependence, uncomplicated; F17.210 Nicotine dependence, cigarettes, uncomplicated; F25.9 Schizoaffective disorder, unspecified; F31.9 Bipolar disorder, unspecified; F41.9 Anxiety disorder, unspecified; G47.30 Sleep apnea, unspecified; Z91.199 Patient's noncompliance with other medical treatment and regimen due to unspecified reason
CPT/HCPCS: 36415; 80307; 87635

== ENCOUNTER 2023-07-17 23:26 | Inpatient (IN) | payer OTHER ==
[2023-07-18] MEDS ORDERED: BENZONATATE 200 MG CAPSULE PO PRN (00:05)
[2023-07-18] MEDS ORDERED: DICYCLOMINE HCL 10 MG CAPSULE PO PRN (00:05)
[2023-07-18] MEDS ORDERED: IBUPROFEN 400 MG TABLET (FP) PO PRN (00:05)
[2023-07-18] MEDS ORDERED: NALOXONE HCL (KLOXXADO) 8 MG SPRAY NS PRN (00:05)
[2023-07-18] MEDS ORDERED: ACETAMINOPHEN 325 MG TABLET (FP) PO PRN (00:05)
[2023-07-18] MEDS ORDERED: NICOTINE POLACRILEX 2 MG LOZENGE BC PRN (00:05)
[2023-07-18] MEDS ORDERED: POLYETHYLENE GLYCOL (HEALTHYLAX) 3350 17 GM PACKET PO PRN (00:05)
[2023-07-18] MEDS ORDERED: IBUPROFEN 600 MG TABLET (FP) PO PRN (00:05)
[2023-07-18] MEDS ORDERED: ONDANSETRON *ODT* 4 MG TABLET SL PRN (00:05)
[2023-07-18] MEDS ORDERED: NALOXONE HCL 0.4 MG/ML VIAL IM PRN (00:05)
[2023-07-18] MEDS ORDERED: guaiFENesin 600 MG TABLET.ER (FP) PO PRN (00:05)
[2023-07-18] MEDS ORDERED: BENZOCAINE/MENTHOL (CHLORASEPTIC ) LOZENGE MM PRN (00:05)
[2023-07-18] MEDS ORDERED: LOPERAMIDE HCL 2 MG CAPSULE PO PRN (00:05)
[2023-07-18] MEDS ORDERED: BISMUTH SUBSALICYLATE 524 MG/30 ML PO PRN (00:05)
[2023-07-18] MEDS ORDERED: MAGNESIUM HYDROX 2400MG/30ML ORAL SUSPENSION 30 ML CUP PO PRN (00:05)
[2023-07-18 00:39] VITALS: BMI 41.3
[2023-07-18] MEDS: NICOTINE 14 MG/24 HOURS TOPICAL PATCH TD SCH (09:29)
[2023-07-18] MEDS: PRENATAL VITAMINS W/ FOLIC ACID TABLET (FP) PO SCH (09:29)
[2023-07-18] MEDS: diazePAM 5 MG TABLET PO SCH (10:23)
[2023-07-18] MEDS ORDERED: LORazepam 1 MG TABLET PO PRN (10:32)
[2023-07-18] MEDS: LORazepam 2 MG TABLET PO SCH (10:58)
[2023-07-18] MEDS: hydrOXYzine PAMOATE 25 MG CAPSULE (FP) PO PRN (17:37)
[2023-07-18] MEDS: MAG HYDROX/AL HYDROX/SIMETH 30 ML UNIT-DOSE CUP PO PRN (18:42)
[2023-07-18] MEDS: OLANZapine 7.5 MG TABLET PO SCH (22:18)
[2023-07-18] MEDS: MELATONIN 5 MG TABLETS PO SCH (22:18)
[2023-07-18] MEDS: THIAMINE HCL 100 MG TABLET (FP) PO SCH (22:19)
[2023-07-19] MEDS: SERTRALINE HCL 50 MG TABLET (FP) PO SCH (10:01)
[2023-07-19 10:32] LABS: HEMATOCRIT 45.2 % (35.4-49); HEMOGLOBIN 14.4 GM/dL (11.7-16.9); MCH 27.8 pg (25.7-33.7); MCHC 31.9 g/dl (32.0-35.9); MEAN PLT VOLUME 9.6 fl (7.5-11.1); PLATELET COUNT 170 10^3/uL (134-434); RDW 14.8 % (11.9-15.9); WHITE BLOOD COUNT 12.8 K/mm3 (4.0-10.0)
[2023-07-19 10:42] LABS: POTASSIUM 3.8 mmol/L (3.5-5.1)
[2023-07-19 10:43] LABS: ALBUMIN 3.5 g/dl (3.4-5.0)
[2023-07-19 10:44] LABS: CALCIUM 8.8 mg/dL (8.5-10.1)
[2023-07-19 10:45] LABS: BLOOD UREA NITROGEN 11.2 mg/dL (7-18)
[2023-07-19 10:47] LABS: CREATININE 0.7 mg/dL (0.55-1.3)
[2023-07-19 10:49] LABS: BILIRUBIN,TOTAL 0.2 mg/dL (0.2-1)
[2023-07-19] MEDS ORDERED: ALBUTEROL SO4 HFA INHALER IH PRN (12:51)
[2023-07-19 17:00] LABS: PH,URINE 5.5 (5.0-8.0); URINE APPEARANCE CLEAR; URINE BILIRUBIN NEGATIVE (NEGATIVE); URINE COLOR YELLOW; URINE GLUCOSE (UA) NEGATIVE (NEGATIVE); URINE KETONE NEGATIVE (NEGATIVE); URINE LEUK ESTERASE NEGATIVE (NEGATIVE); URINE NITRITE NEGATIVE (NEGATIVE); URINE PROTEIN NEGATIVE (NEGATIVE); URINE UROBILINOGEN 0.2 mg/dL (0.2-1.0)
[2023-07-19 19:16] VITALS: BP 143/86; PULSE 83; RESP 17; TEMP 98.3
[2023-07-20] MEDS ORDERED: LORazepam 1 MG TABLET PO SCH (05:00)
[2023-07-20] MEDS ORDERED: diazePAM 5 MG TABLET PO SCH (06:00)
[2023-07-21] MEDS ORDERED: LORazepam 0.5 MG TABLET PO SCH (05:00)
[2023-07-21] MEDS ORDERED: diazePAM 5 MG TABLET PO SCH (06:00)
[2023-07-22] MEDS ORDERED: LORazepam 0.5 MG TABLET PO ONE (05:00)
[2023-07-22] MEDS ORDERED: diazePAM 5 MG TABLET PO ONE (06:00)
== END 2023-07-19 06:30 | disposition left against medical advice (07) | DRG 770 ==
LOC: YASAS 23:26 → Y3N 07-18 02:54 → Y6N 07-18 04:48
PROVIDERS: ADMIT Allergy & Immunology; ATTEND Surgery
PROC: HZ2ZZZZ Detoxification Services for Substance Abuse Treatment (ICD-10-PCS; principal; 2023-07-18)
DX: F10.230 Alcohol dependence with withdrawal, uncomplicated (principal); F14.20 Cocaine dependence, uncomplicated; F16.20 Hallucinogen dependence, uncomplicated; F17.210 Nicotine dependence, cigarettes, uncomplicated; F25.9 Schizoaffective disorder, unspecified; F19.24 Other psychoactive substance dependence with psychoactive substance-induced mood disorder; U07.1 COVID-19; G47.30 Sleep apnea, unspecified; J45.20 Mild intermittent asthma, uncomplicated
CPT/HCPCS: 36415; 80053; 80307; 81003; 85027; 86780; 87635; 87811; 93005; 93010

== ENCOUNTER 2023-08-19 19:18 | Inpatient (IN) | payer OTHER ==
[2023-08-19 19:51] VITALS: BMI 40.1
[2023-08-19] MEDS ORDERED: diazePAM 5 MG TABLET PO PRN (19:56)
[2023-08-19] MEDS ORDERED: LOPERAMIDE HCL 2 MG CAPSULE PO PRN (20:11)
[2023-08-19] MEDS ORDERED: NICOTINE POLACRILEX 2 MG LOZENGE BC PRN (20:11)
[2023-08-19] MEDS ORDERED: BISMUTH SUBSALICYLATE 524 MG/30 ML PO PRN (20:11)
[2023-08-19] MEDS ORDERED: IBUPROFEN 400 MG TABLET (FP) PO PRN (20:11)
[2023-08-19] MEDS ORDERED: BENZONATATE 200 MG CAPSULE PO PRN (20:11)
[2023-08-19] MEDS ORDERED: BENZOCAINE/MENTHOL (CHLORASEPTIC ) LOZENGE MM PRN (20:11)
[2023-08-19] MEDS ORDERED: MAGNESIUM HYDROX 2400MG/30ML ORAL SUSPENSION 30 ML CUP PO PRN (20:11)
[2023-08-19] MEDS ORDERED: NICOTINE POLACRILEX 2 MG GUM BUC PRN (20:11)
[2023-08-19] MEDS ORDERED: P-EPHED 60MG/TRIPROLIDI 2.5MG TABLET PO PRN (20:11)
[2023-08-19] MEDS ORDERED: DICYCLOMINE HCL 10 MG CAPSULE PO PRN (20:11)
[2023-08-19] MEDS ORDERED: ONDANSETRON *ODT* 4 MG TABLET SL PRN (20:11)
[2023-08-19] MEDS ORDERED: guaiFENesin 600 MG TABLET.ER (FP) PO PRN (20:11)
[2023-08-19] MEDS ORDERED: POLYETHYLENE GLYCOL (HEALTHYLAX) 3350 17 GM PACKET PO PRN (20:11)
[2023-08-19] MEDS ORDERED: ALBUTEROL SO4 HFA INHALER IH PRN (20:13)
[2023-08-19] MEDS ORDERED: IBUPROFEN 600 MG TABLET (FP) PO ONE (20:41)
[2023-08-19] MEDS ORDERED: METOPROLOL TARTRATE 25 MG TABLET (FP) ONE (20:41)
[2023-08-19] MEDS: METOPROLOL TARTRATE 25 MG TABLET (FP) PO ONE (20:42)
[2023-08-19] MEDS: IBUPROFEN 600 MG TABLET (FP) PO PRN (20:44)
[2023-08-19] MEDS: METHOCARBAMOL 500 MG TABLET PO PRN (21:07)
[2023-08-19] MEDS: MELATONIN 5 MG TABLETS PO PRN (22:15)
[2023-08-19] MEDS: THIAMINE HCL 100 MG TABLET (FP) PO SCH (22:15)
[2023-08-19] MEDS: diazePAM 5 MG TABLET PO SCH (22:16)
[2023-08-20] MEDS: ACETAMINOPHEN 325 MG TABLET (FP) PO PRN (05:41)
[2023-08-20] MEDS: PRENATAL VITAMINS W/ FOLIC ACID TABLET (FP) PO SCH (10:17)
[2023-08-20] MEDS: SERTRALINE HCL 50 MG TABLET (FP) PO SCH (10:17)
[2023-08-20] MEDS: MAG HYDROX/AL HYDROX/SIMETH 30 ML UNIT-DOSE CUP PO PRN (10:19)
[2023-08-20 12:18] LABS: POTASSIUM 4.1 mmol/L (3.5-5.1)
[2023-08-20 12:20] LABS: HEMATOCRIT 41.1 % (35.4-49); HEMOGLOBIN 13.3 GM/dL (11.7-16.9); MCH 28.1 pg (25.7-33.7); MCHC 32.5 g/dl (32.0-35.9); MEAN CELL VOLUME 86.7 fl (80-96); MEAN PLT VOLUME 9.2 fl (7.5-11.1); PLATELET COUNT 185 10^3/uL (134-434); RBC 4.74 M/mm3 (4.00-5.60); RDW 15.4 % (11.9-15.9); WHITE BLOOD COUNT 8.5 K/mm3 (4.0-10.0)
[2023-08-20 12:27] LABS: ALBUMIN 3.6 g/dl (3.4-5.0); CALCIUM 8.7 mg/dL (8.5-10.1)
[2023-08-20 12:28] LABS: BLOOD UREA NITROGEN 22.4 mg/dL (7-18)
[2023-08-20 12:31] LABS: CREATININE 0.7 mg/dL (0.55-1.3)
[2023-08-20 12:32] LABS: BILIRUBIN,TOTAL 0.3 mg/dL (0.2-1); TOT PROT 7.1 g/dl (6.4-8.2)
[2023-08-20] MEDS: OLANZapine 7.5 MG TABLET PO SCH (22:24)
[2023-08-21] MEDS: diazePAM 5 MG TABLET PO SCH (05:36)
[2023-08-21 13:18] VITALS: BP 109/51; PULSE 66; RESP 18; TEMP 98.1
[2023-08-22] MEDS ORDERED: diazePAM 5 MG TABLET PO ONE (06:00)
== END 2023-08-21 15:12 | disposition home or self-care (01) | DRG 774 ==
LOC: YASAS 19:18 → Y6N 20:18
PROVIDERS: ADMIT Allergy & Immunology; ATTEND Surgery
PROC: HZ2ZZZZ Detoxification Services for Substance Abuse Treatment (ICD-10-PCS; principal; 2023-08-19)
DX: F10.230 Alcohol dependence with withdrawal, uncomplicated (principal); F14.20 Cocaine dependence, uncomplicated; F16.20 Hallucinogen dependence, uncomplicated; F12.20 Cannabis dependence, uncomplicated; F17.210 Nicotine dependence, cigarettes, uncomplicated; F25.1 Schizoaffective disorder, depressive type; F31.9 Bipolar disorder, unspecified; F19.282 Other psychoactive substance dependence with psychoactive substance-induced sleep disorder; F19.24 Other psychoactive substance dependence with psychoactive substance-induced mood disorder; G47.33 Obstructive sleep apnea (adult) (pediatric); E66.01 Morbid (severe) obesity due to excess calories; Z68.41 Body mass index [BMI] 40.0-44.9, adult
CPT/HCPCS: 0241U-QW; 36415; 80053; 80305; 83036; 85027; 86780; 87635; 87811

== ENCOUNTER 2023-09-22 02:02 | Inpatient (IN) | payer OTHER ==
[2023-09-22 02:21] VITALS: BMI 40.1
[2023-09-22] MEDS ORDERED: DICYCLOMINE HCL 10 MG CAPSULE PO PRN (02:34)
[2023-09-22] MEDS ORDERED: NALOXONE HCL 0.4 MG/ML VIAL IM PRN (02:34)
[2023-09-22] MEDS ORDERED: BENZONATATE 200 MG CAPSULE PO PRN (02:34)
[2023-09-22] MEDS ORDERED: NICOTINE POLACRILEX 2 MG LOZENGE BC PRN (02:34)
[2023-09-22] MEDS ORDERED: BISMUTH SUBSALICYLATE 524 MG/30 ML PO PRN (02:34)
[2023-09-22] MEDS ORDERED: ONDANSETRON *ODT* 4 MG TABLET SL PRN (02:34)
[2023-09-22] MEDS ORDERED: BENZOCAINE/MENTHOL (CHLORASEPTIC ) LOZENGE MM PRN (02:34)
[2023-09-22] MEDS ORDERED: POLYETHYLENE GLYCOL (HEALTHYLAX) 3350 17 GM PACKET PO PRN (02:34)
[2023-09-22] MEDS ORDERED: NALOXONE HCL (KLOXXADO) 8 MG SPRAY NS PRN (02:34)
[2023-09-22] MEDS ORDERED: MAG HYDROX/AL HYDROX/SIMETH 30 ML UNIT-DOSE CUP PO PRN (02:34)
[2023-09-22] MEDS ORDERED: LOPERAMIDE HCL 2 MG CAPSULE PO PRN (02:34)
[2023-09-22] MEDS ORDERED: guaiFENesin 600 MG TABLET.ER (FP) PO PRN (02:34)
[2023-09-22] MEDS ORDERED: MAGNESIUM HYDROX 2400MG/30ML ORAL SUSPENSION 30 ML CUP PO PRN (02:34)
[2023-09-22] MEDS ORDERED: ACETAMINOPHEN 325 MG TABLET (FP) PO PRN (02:34)
[2023-09-22] MEDS ORDERED: IBUPROFEN 400 MG TABLET (FP) PO PRN (02:34)
[2023-09-22] MEDS ORDERED: ALBUTEROL SO4 HFA INHALER IH PRN (02:36)
[2023-09-22] MEDS: METHOCARBAMOL 500 MG TABLET PO PRN (10:41)
[2023-09-22] MEDS: IBUPROFEN 600 MG TABLET (FP) PO PRN (10:41)
[2023-09-22] MEDS: PRENATAL VITAMINS W/ FOLIC ACID TABLET (FP) PO SCH (10:41)
[2023-09-22] MEDS: NICOTINE 14 MG/24 HOURS TOPICAL PATCH TD SCH (10:43)
[2023-09-22] MEDS: cloNIDine HCL 0.1 MG TABLET PO PRN (22:28)
[2023-09-22] MEDS: MELATONIN 5 MG TABLETS PO SCH (22:29)
[2023-09-22] MEDS: THIAMINE HCL 100 MG TABLET (FP) PO SCH (22:29)
[2023-09-23] MEDS: hydrOXYzine PAMOATE 25 MG CAPSULE (FP) PO PRN (05:42)
[2023-09-23] MEDS: diazePAM 5 MG TABLET PO SCH (11:08)
[2023-09-24] MEDS: OLANZapine 7.5 MG TABLET PO SCH (22:20)
[2023-09-25] MEDS: diazePAM 5 MG TABLET PO SCH (05:42)
[2023-09-25] MEDS: SERTRALINE HCL 50 MG TABLET (FP) PO SCH (10:21)
[2023-09-26] MEDS: diazePAM 5 MG TABLET PO SCH (05:36)
[2023-09-26] MEDS: diazePAM 5 MG TABLET PO PRN (10:13)
[2023-09-26 16:55] VITALS: BP 144/95; PULSE 98; RESP 16; TEMP 97.7
[2023-09-27] MEDS ORDERED: diazePAM 5 MG TABLET PO ONE (06:00)
== END 2023-09-26 17:11 | disposition home or self-care (01) | DRG 774 ==
LOC: YASAS 02:02 → Y3N 02:54
PROVIDERS: ADMIT Allergy & Immunology; ATTEND Allergy & Immunology
PROC: HZ2ZZZZ Detoxification Services for Substance Abuse Treatment (ICD-10-PCS; principal; 2023-09-22)
DX: F10.230 Alcohol dependence with withdrawal, uncomplicated (principal); F14.20 Cocaine dependence, uncomplicated; F16.20 Hallucinogen dependence, uncomplicated; F12.20 Cannabis dependence, uncomplicated; F17.210 Nicotine dependence, cigarettes, uncomplicated; F25.0 Schizoaffective disorder, bipolar type; F19.24 Other psychoactive substance dependence with psychoactive substance-induced mood disorder; G47.33 Obstructive sleep apnea (adult) (pediatric); J45.20 Mild intermittent asthma, uncomplicated; Z91.199 Patient's noncompliance with other medical treatment and regimen due to unspecified reason

== ENCOUNTER 2023-10-12 22:00 | Inpatient (IN) | payer OTHER ==
[2023-10-12 22:38] VITALS: BMI 39.9
[2023-10-13] MEDS ORDERED: BISMUTH SUBSALICYLATE 524 MG/30 ML PO PRN (01:09)
[2023-10-13] MEDS ORDERED: MAG HYDROX/AL HYDROX/SIMETH 30 ML UNIT-DOSE CUP PO PRN (01:09)
[2023-10-13] MEDS ORDERED: LOPERAMIDE HCL 2 MG CAPSULE PO PRN (01:09)
[2023-10-13] MEDS ORDERED: BENZONATATE 200 MG CAPSULE PO PRN (01:09)
[2023-10-13] MEDS ORDERED: IBUPROFEN 400 MG TABLET (FP) PO PRN (01:09)
[2023-10-13] MEDS ORDERED: IBUPROFEN 600 MG TABLET (FP) PO PRN (01:09)
[2023-10-13] MEDS ORDERED: ONDANSETRON *ODT* 4 MG TABLET SL PRN (01:09)
[2023-10-13] MEDS ORDERED: hydrOXYzine PAMOATE 25 MG CAPSULE (FP) PO PRN (01:09)
[2023-10-13] MEDS ORDERED: NICOTINE POLACRILEX 2 MG GUM BUC PRN (01:09)
[2023-10-13] MEDS ORDERED: POLYETHYLENE GLYCOL (HEALTHYLAX) 3350 17 GM PACKET PO PRN (01:09)
[2023-10-13] MEDS ORDERED: MAGNESIUM HYDROX 2400MG/30ML ORAL SUSPENSION 30 ML CUP PO PRN (01:09)
[2023-10-13] MEDS ORDERED: NALOXONE HCL 0.4 MG/ML VIAL IM PRN (01:09)
[2023-10-13] MEDS ORDERED: DICYCLOMINE HCL 10 MG CAPSULE PO PRN (01:09)
[2023-10-13] MEDS ORDERED: ACETAMINOPHEN 325 MG TABLET (FP) PO PRN (01:09)
[2023-10-13] MEDS ORDERED: BENZOCAINE/MENTHOL (CHLORASEPTIC ) LOZENGE MM PRN (01:09)
[2023-10-13] MEDS ORDERED: NALOXONE HCL (KLOXXADO) 8 MG SPRAY NS PRN (01:09)
[2023-10-13] MEDS ORDERED: ALBUTEROL SO4 HFA INHALER IH PRN (09:01)
[2023-10-13] MEDS: NICOTINE 14 MG/24 HOURS TOPICAL PATCH TD SCH (10:00)
[2023-10-13] MEDS: METHOCARBAMOL 500 MG TABLET PO PRN (10:03)
[2023-10-13] MEDS: amLODIPine BESYLATE 5 MG TABLET (FP) PO SCH (10:03)
[2023-10-13] MEDS: PRENATAL VITAMINS W/ FOLIC ACID TABLET (FP) PO SCH (10:03)
[2023-10-13] MEDS: diazePAM 5 MG TABLET PO PRN (10:04)
[2023-10-13] MEDS: NALTREXONE HCL 50 MG TABLET PO SCH (10:56)
[2023-10-13] MEDS: SERTRALINE HCL 50 MG TABLET (FP) PO SCH (11:34)
[2023-10-13] MEDS: diazePAM 5 MG TABLET PO SCH (13:46)
[2023-10-13] MEDS: THIAMINE 100 MG TABLET PO SCH (22:42)
[2023-10-13] MEDS: OLANZapine 5 MG TABLET PO SCH (22:45)
[2023-10-13] MEDS: MELATONIN 5 MG TABLETS PO SCH (22:47)
[2023-10-14] MEDS: diazePAM 5 MG TABLET PO SCH (06:18)
[2023-10-14 09:27] LABS: HEMATOCRIT 42.3 % (35.4-49); HEMOGLOBIN 14.1 GM/dL (11.7-16.9); MCH 29.7 pg (25.7-33.7); MCHC 33.4 g/dl (32.0-35.9); MEAN CELL VOLUME 89.1 fl (80-96); MEAN PLT VOLUME 9.3 fl (7.5-11.1); PLATELET COUNT 191 10^3/uL (134-434); RBC 4.75 M/mm3 (4.00-5.60); RDW 16.2 % (11.9-15.9); WHITE BLOOD COUNT 8.3 K/mm3 (4.0-10.0)
[2023-10-14 09:47] LABS: POTASSIUM 4.2 mmol/L (3.5-5.1)
[2023-10-14 09:49] LABS: ALBUMIN 3.3 g/dl (3.4-5.0); BLOOD UREA NITROGEN 14.5 mg/dL (7-18); CALCIUM 8.9 mg/dL (8.5-10.1)
[2023-10-14 09:53] LABS: CREATININE 0.6 mg/dL (0.55-1.3)
[2023-10-14 09:54] LABS: BILIRUBIN,TOTAL 0.5 mg/dL (0.2-1); TOT PROT 6.7 g/dl (6.4-8.2)
[2023-10-14 12:50] VITALS: RESP 18
[2023-10-15] MEDS: diazePAM 5 MG TABLET PO ONE (06:03)
[2023-10-15 08:45] VITALS: BP 117/56; PULSE 88; TEMP 96.8
[2023-10-15] MEDS: guaiFENesin 600 MG TABLET.ER (FP) PO PRN (09:14)
== END 2023-10-15 12:35 | disposition home or self-care (01) | DRG 774 ==
LOC: YASAS 22:00 → Y6N 10-13 01:39
PROVIDERS: ADMIT Allergy & Immunology; ATTEND Allergy & Immunology
PROC: HZ2ZZZZ Detoxification Services for Substance Abuse Treatment (ICD-10-PCS; principal; 2023-10-13)
DX: F10.230 Alcohol dependence with withdrawal, uncomplicated (principal); F14.20 Cocaine dependence, uncomplicated; F17.210 Nicotine dependence, cigarettes, uncomplicated; F25.0 Schizoaffective disorder, bipolar type; G47.30 Sleep apnea, unspecified; I10 Essential (primary) hypertension; J45.20 Mild intermittent asthma, uncomplicated; Z99.89 Dependence on other enabling machines and devices; Z56.0 Unemployment, unspecified; Z59.00 Homelessness unspecified
CPT/HCPCS: 36415; 80053; 80305; 80307; 85027; 86780; 93005; 93010

== ENCOUNTER 2023-11-16 22:08 | Inpatient (IN) | payer OTHER ==
[2023-11-16 22:56] VITALS: BMI 39.9
[2023-11-17] MEDS ORDERED: BISMUTH SUBSALICYLATE 524 MG/30 ML PO PRN (12:12)
[2023-11-17] MEDS ORDERED: ACETAMINOPHEN 325 MG TABLET (FP) PO PRN (12:12)
[2023-11-17] MEDS ORDERED: P-EPHED 60MG/TRIPROLIDI 2.5MG TABLET PO PRN (12:12)
[2023-11-17] MEDS ORDERED: BENZOCAINE/MENTHOL (CHLORASEPTIC ) LOZENGE MM PRN (12:12)
[2023-11-17] MEDS ORDERED: POLYETHYLENE GLYCOL (HEALTHYLAX) 3350 17 GM PACKET PO PRN (12:12)
[2023-11-17] MEDS ORDERED: NICOTINE POLACRILEX 2 MG LOZENGE BC PRN (12:12)
[2023-11-17] MEDS ORDERED: DICYCLOMINE HCL 10 MG CAPSULE PO PRN (12:12)
[2023-11-17] MEDS ORDERED: ONDANSETRON *ODT* 4 MG TABLET SL PRN (12:12)
[2023-11-17] MEDS ORDERED: BENZONATATE 200 MG CAPSULE PO PRN (12:12)
[2023-11-17] MEDS ORDERED: MAGNESIUM HYDROX 2400MG/30ML ORAL SUSPENSION 30 ML CUP PO PRN (12:12)
[2023-11-17] MEDS ORDERED: MAG HYDROX/AL HYDROX/SIMETH 30 ML UNIT-DOSE CUP PO PRN (12:12)
[2023-11-17] MEDS ORDERED: LOPERAMIDE HCL 2 MG CAPSULE PO PRN (12:12)
[2023-11-17] MEDS ORDERED: guaiFENesin 600 MG TABLET.ER (FP) PO PRN (12:12)
[2023-11-17] MEDS ORDERED: NICOTINE POLACRILEX 2 MG GUM BUC PRN (12:12)
[2023-11-17] MEDS ORDERED: IBUPROFEN 400 MG TABLET (FP) PO PRN (12:12)
[2023-11-17] MEDS ORDERED: ALBUTEROL SO4 HFA INHALER IH PRN (12:14)
[2023-11-17] MEDS ORDERED: METHOCARBAMOL 500 MG TABLET ONE (12:23)
[2023-11-17] MEDS: diazePAM 5 MG TABLET PO PRN (12:28)
[2023-11-17] MEDS: METHOCARBAMOL 500 MG TABLET PO PRN (12:29)
[2023-11-17] MEDS: SERTRALINE HCL 50 MG TABLET (FP) PO SCH (16:26)
[2023-11-17] MEDS: diazePAM 5 MG TABLET PO SCH (17:16)
[2023-11-17] MEDS: IBUPROFEN 600 MG TABLET (FP) PO PRN (17:17)
[2023-11-17] MEDS: MELATONIN 5 MG TABLETS PO SCH (22:45)
[2023-11-17] MEDS: OLANZapine 5 MG TABLET PO SCH (22:45)
[2023-11-17] MEDS: THIAMINE 100 MG TABLET PO SCH (22:45)
[2023-11-18] MEDS: amLODIPine BESYLATE 5 MG TABLET (FP) PO SCH (11:06)
[2023-11-18] MEDS: PRENATAL VITAMINS W/ FOLIC ACID TABLET (FP) PO SCH (11:06)
[2023-11-18 12:01] LABS: HEMATOCRIT 43.4 % (35.4-49); HEMOGLOBIN 14.4 GM/dL (11.7-16.9); MCH 29.5 pg (25.7-33.7); MCHC 33.2 g/dl (32.0-35.9); MEAN CELL VOLUME 88.9 fl (80-96); MEAN PLT VOLUME 9.9 fl (7.5-11.1); PLATELET COUNT 167 10^3/uL (134-434); RBC 4.88 M/mm3 (4.00-5.60); RDW 14.8 % (11.9-15.9); WHITE BLOOD COUNT 5.8 K/mm3 (4.0-10.0)
[2023-11-18 12:03] LABS: POTASSIUM 3.9 mmol/L (3.5-5.1)
[2023-11-18 12:06] LABS: ALBUMIN 3.4 g/dl (3.4-5.0); BLOOD UREA NITROGEN 16.9 mg/dL (7-18); CALCIUM 8.6 mg/dL (8.5-10.1)
[2023-11-18 12:09] LABS: CREATININE 0.7 mg/dL (0.55-1.3)
[2023-11-18 12:11] LABS: BILIRUBIN,TOTAL 0.3 mg/dL (0.2-1); TOT PROT 6.8 g/dl (6.4-8.2)
[2023-11-19] MEDS: diazePAM 5 MG TABLET PO SCH (06:02)
[2023-11-19] MEDS: NALTREXONE HCL 50 MG TABLET PO SCH (11:30)
[2023-11-20] MEDS: diazePAM 5 MG TABLET PO SCH (05:40)
[2023-11-20] MEDS: amLODIPine BESYLATE 5 MG TABLET (FP) PO SCH (09:35)
[2023-11-21] MEDS: diazePAM 5 MG TABLET PO ONE (05:49)
[2023-11-21 06:45] VITALS: BP 126/86; PULSE 60; RESP 18; TEMP 97.6
== END 2023-11-21 09:36 | disposition home or self-care (01) | DRG 774 ==
LOC: YASAS 22:08 → Y6N 11-17 11:43
PROVIDERS: ADMIT Allergy & Immunology; ATTEND Surgery
PROC: HZ2ZZZZ Detoxification Services for Substance Abuse Treatment (ICD-10-PCS; principal; 2023-11-17)
DX: F10.230 Alcohol dependence with withdrawal, uncomplicated (principal); F14.20 Cocaine dependence, uncomplicated; F16.20 Hallucinogen dependence, uncomplicated; F12.20 Cannabis dependence, uncomplicated; F17.210 Nicotine dependence, cigarettes, uncomplicated; F19.282 Other psychoactive substance dependence with psychoactive substance-induced sleep disorder; F19.280 Other psychoactive substance dependence with psychoactive substance-induced anxiety disorder; F19.24 Other psychoactive substance dependence with psychoactive substance-induced mood disorder; F25.0 Schizoaffective disorder, bipolar type; F25.1 Schizoaffective disorder, depressive type; I10 Essential (primary) hypertension; J45.20 Mild intermittent asthma, uncomplicated; G47.30 Sleep apnea, unspecified; Z56.0 Unemployment, unspecified; Z59.00 Homelessness unspecified
CPT/HCPCS: 36415; 80053; 80178; 80305; 80307; 85027

== ENCOUNTER 2023-12-11 22:12 | Inpatient (IN) | payer OTHER ==
[2023-12-11 22:49] VITALS: BMI 42.2
[2023-12-11] MEDS ORDERED: diazePAM 5 MG TABLET PO PRN (23:10)
[2023-12-11] MEDS ORDERED: MAGNESIUM HYDROX 2400MG/30ML ORAL SUSPENSION 30 ML CUP PO PRN (23:11)
[2023-12-11] MEDS ORDERED: METHOCARBAMOL 500 MG TABLET PO PRN (23:11)
[2023-12-11] MEDS ORDERED: IBUPROFEN 400 MG TABLET (FP) PO PRN (23:11)
[2023-12-11] MEDS ORDERED: ONDANSETRON *ODT* 4 MG TABLET SL PRN (23:11)
[2023-12-11] MEDS ORDERED: BENZOCAINE/MENTHOL (CHLORASEPTIC ) LOZENGE MM PRN (23:11)
[2023-12-11] MEDS ORDERED: POLYETHYLENE GLYCOL (HEALTHYLAX) 3350 17 GM PACKET PO PRN (23:11)
[2023-12-11] MEDS ORDERED: NICOTINE POLACRILEX 2 MG LOZENGE BC PRN (23:11)
[2023-12-11] MEDS ORDERED: BENZONATATE 200 MG CAPSULE PO PRN (23:11)
[2023-12-11] MEDS ORDERED: DICYCLOMINE HCL 10 MG CAPSULE PO PRN (23:11)
[2023-12-11] MEDS ORDERED: LOPERAMIDE HCL 2 MG CAPSULE PO PRN (23:11)
[2023-12-11] MEDS ORDERED: NICOTINE POLACRILEX 2 MG GUM BUC PRN (23:11)
[2023-12-11] MEDS ORDERED: BISMUTH SUBSALICYLATE 524 MG/30 ML PO PRN (23:11)
[2023-12-11] MEDS ORDERED: guaiFENesin 600 MG TABLET.ER (FP) PO PRN (23:11)
[2023-12-11] MEDS ORDERED: MAG HYDROX/AL HYDROX/SIMETH 30 ML UNIT-DOSE CUP PO PRN (23:11)
[2023-12-12] MEDS: diazePAM 5 MG TABLET PO SCH (00:06)
[2023-12-12] MEDS ORDERED: ACETAMINOPHEN 325 MG TABLET (FP) ONE (01:08)
[2023-12-12] MEDS: ACETAMINOPHEN 325 MG TABLET (FP) PO PRN (01:08)
[2023-12-12] MEDS: PRENATAL VITAMINS W/ FOLIC ACID TABLET (FP) PO SCH (10:13)
[2023-12-12] MEDS: SERTRALINE HCL 50 MG TABLET (FP) PO SCH (12:25)
[2023-12-12] MEDS: IBUPROFEN 600 MG TABLET (FP) PO PRN (17:19)
[2023-12-12] MEDS: MELATONIN 5 MG TABLETS PO SCH (22:18)
[2023-12-12] MEDS: OLANZapine 7.5 MG TABLET PO SCH (22:18)
[2023-12-12] MEDS: THIAMINE 100 MG TABLET PO SCH (22:18)
[2023-12-13] MEDS: diazePAM 5 MG TABLET PO SCH (05:16)
[2023-12-13] MEDS ORDERED: ALBUTEROL SO4 HFA INHALER IH PRN (11:52)
[2023-12-13] MEDS: amLODIPine BESYLATE 5 MG TABLET (FP) PO SCH (12:07)
[2023-12-14] MEDS: diazePAM 5 MG TABLET PO SCH (05:22)
[2023-12-14 09:38] VITALS: RESP 18
[2023-12-14 13:17] VITALS: BP 132/74
[2023-12-14 16:52] VITALS: PULSE 90; TEMP 98
[2023-12-15] MEDS ORDERED: diazePAM 5 MG TABLET PO ONE (06:00)
== END 2023-12-14 18:00 | disposition home or self-care (01) | DRG 774 ==
LOC: YASAS 22:12 → Y3N 23:52
PROVIDERS: ADMIT Allergy & Immunology; ATTEND Surgery
PROC: HZ2ZZZZ Detoxification Services for Substance Abuse Treatment (ICD-10-PCS; principal; 2023-12-11)
DX: F10.230 Alcohol dependence with withdrawal, uncomplicated (principal); F14.20 Cocaine dependence, uncomplicated; F16.10 Hallucinogen abuse, uncomplicated; F12.20 Cannabis dependence, uncomplicated; F17.210 Nicotine dependence, cigarettes, uncomplicated; F31.9 Bipolar disorder, unspecified; G47.33 Obstructive sleep apnea (adult) (pediatric); I10 Essential (primary) hypertension; J45.20 Mild intermittent asthma, uncomplicated; Z86.69 Personal history of other diseases of the nervous system and sense organs
CPT/HCPCS: 80305; 80307

== ENCOUNTER 2024-01-20 08:28 | Inpatient (IN) | payer OTHER ==
[2024-01-20 09:17] VITALS: BMI 32.8
[2024-01-20] MEDS ORDERED: IBUPROFEN 400 MG TABLET (FP) PO PRN (09:24)
[2024-01-20] MEDS ORDERED: BISMUTH SUBSALICYLATE 262 MG/15 ML BTL PO PRN (09:24)
[2024-01-20] MEDS ORDERED: POLYETHYLENE GLYCOL (HEALTHYLAX) 3350 17 GM PACKET PO PRN (09:24)
[2024-01-20] MEDS ORDERED: BENZOCAINE/MENTHOL (CHLORASEPTIC ) LOZENGE MM PRN (09:24)
[2024-01-20] MEDS ORDERED: LOPERAMIDE HCL 2 MG CAPSULE PO PRN (09:24)
[2024-01-20] MEDS ORDERED: NICOTINE POLACRILEX 2 MG LOZENGE BC PRN (09:24)
[2024-01-20] MEDS ORDERED: DICYCLOMINE HCL 10 MG CAPSULE PO PRN (09:24)
[2024-01-20] MEDS ORDERED: MAGNESIUM HYDROX 2400MG/30ML ORAL SUSPENSION 30 ML CUP PO PRN (09:24)
[2024-01-20] MEDS ORDERED: guaiFENesin 600 MG TABLET.ER (FP) PO PRN (09:24)
[2024-01-20] MEDS ORDERED: NICOTINE POLACRILEX 2 MG GUM BUC PRN (09:24)
[2024-01-20] MEDS ORDERED: BENZONATATE 200 MG CAPSULE PO PRN (09:24)
[2024-01-20] MEDS ORDERED: MAG HYDROX/AL HYDROX/SIMETH 30 ML UNIT-DOSE CUP PO PRN (09:24)
[2024-01-20] MEDS ORDERED: diazePAM 5 MG TABLET PO PRN (09:25)
[2024-01-20] MEDS ORDERED: ONDANSETRON *ODT* 4 MG TABLET ONE (09:40)
[2024-01-20] MEDS ORDERED: PRENATAL VITAMINS W/ FOLIC ACID TABLET (FP) PO ONE (09:40)
[2024-01-20] MEDS ORDERED: IBUPROFEN 600 MG TABLET (FP) PO ONE (09:40)
[2024-01-20] MEDS: PRENATAL VITAMINS W/ FOLIC ACID TABLET (FP) PO SCH (09:41)
[2024-01-20] MEDS: ONDANSETRON *ODT* 4 MG TABLET SL PRN (09:42)
[2024-01-20] MEDS: IBUPROFEN 600 MG TABLET (FP) PO PRN (09:42)
[2024-01-20] MEDS: diazePAM 5 MG TABLET PO SCH (18:20)
[2024-01-20] MEDS: METHOCARBAMOL 500 MG TABLET PO PRN (22:38)
[2024-01-20] MEDS: MELATONIN 5 MG TABLETS PO SCH (22:38)
[2024-01-20] MEDS: THIAMINE 100 MG TABLET PO SCH (22:38)
[2024-01-20] MEDS: OLANZapine 10 MG TABLET PO SCH (22:38)
[2024-01-21] MEDS ORDERED: ALBUTEROL SO4 HFA INHALER IH PRN (09:25)
[2024-01-21] MEDS: amLODIPine BESYLATE 5 MG TABLET (FP) PO SCH (10:10)
[2024-01-21] MEDS: SERTRALINE HCL 50 MG TABLET (FP) PO SCH (10:10)
[2024-01-21 11:40] LABS: MCH 28.8 pg (25.7-33.7); MCHC 33.3 g/dl (32.0-35.9); MEAN CELL VOLUME 86.6 fl (80-96); MEAN PLT VOLUME 9.8 fl (7.5-11.1); PLATELET COUNT 173 10^3/uL (134-434); RBC 4.85 M/mm3 (4.00-5.60); RDW 15.5 % (11.9-15.9); WHITE BLOOD COUNT 9.2 K/mm3 (4.0-10.0)
[2024-01-21 11:58] LABS: POTASSIUM 3.8 mmol/L (3.5-5.1)
[2024-01-21 12:09] LABS: ALBUMIN 3.5 g/dl (3.4-5.0); BLOOD UREA NITROGEN 12.7 mg/dL (7-18)
[2024-01-21 12:13] LABS: CREATININE 0.7 mg/dL (0.55-1.3)
[2024-01-21 12:14] LABS: BILIRUBIN,TOTAL 0.6 mg/dL (0.2-1); TOT PROT 6.9 g/dl (6.4-8.2)
[2024-01-21] MEDS: ACETAMINOPHEN 325 MG TABLET (FP) PO PRN (17:16)
[2024-01-22] MEDS: diazePAM 5 MG TABLET PO SCH (05:47)
[2024-01-22 08:49] VITALS: BP 136/87; PULSE 77; RESP 16; TEMP 96.7
[2024-01-23] MEDS ORDERED: diazePAM 5 MG TABLET PO SCH (06:00)
[2024-01-24] MEDS ORDERED: diazePAM 5 MG TABLET PO ONE (06:00)
== END 2024-01-22 13:04 | disposition home or self-care (01) | DRG 774 ==
LOC: YASAS 08:28 → Y3N 09:51
PROVIDERS: ADMIT Allergy & Immunology; ATTEND Surgery
PROC: HZ2ZZZZ Detoxification Services for Substance Abuse Treatment (ICD-10-PCS; principal; 2024-01-20)
DX: F10.230 Alcohol dependence with withdrawal, uncomplicated (principal); F14.20 Cocaine dependence, uncomplicated; F16.20 Hallucinogen dependence, uncomplicated; F12.20 Cannabis dependence, uncomplicated; F17.210 Nicotine dependence, cigarettes, uncomplicated; F31.9 Bipolar disorder, unspecified; F41.9 Anxiety disorder, unspecified; F20.9 Schizophrenia, unspecified; I10 Essential (primary) hypertension; J45.909 Unspecified asthma, uncomplicated; G47.33 Obstructive sleep apnea (adult) (pediatric); Z86.69 Personal history of other diseases of the nervous system and sense organs; Z56.0 Unemployment, unspecified; Z59.01 Sheltered homelessness
CPT/HCPCS: 36415; 80053; 80305; 85027; Q0162

== ENCOUNTER 2024-02-29 14:45 | Inpatient (IN) | payer OTHER ==
[2024-02-29 15:24] VITALS: BMI 41.5
[2024-02-29] MEDS ORDERED: diazePAM 5 MG TABLET PO PRN (16:23)
[2024-02-29] MEDS ORDERED: DICYCLOMINE HCL 10 MG CAPSULE PO PRN (16:27)
[2024-02-29] MEDS ORDERED: POLYETHYLENE GLYCOL (HEALTHYLAX) 3350 17 GM PACKET PO PRN (16:27)
[2024-02-29] MEDS ORDERED: NALOXONE HCL 0.4 MG/ML VIAL IM PRN (16:27)
[2024-02-29] MEDS ORDERED: MAGNESIUM HYDROX 2400MG/30ML ORAL SUSPENSION 30 ML CUP PO PRN (16:27)
[2024-02-29] MEDS ORDERED: IBUPROFEN 400 MG TABLET (FP) PO PRN (16:27)
[2024-02-29] MEDS ORDERED: BISMUTH SUBSALICYLATE 524 MG/30 ML PO PRN (16:27)
[2024-02-29] MEDS ORDERED: guaiFENesin 600 MG TABLET.ER (FP) PO PRN (16:27)
[2024-02-29] MEDS ORDERED: BENZONATATE 200 MG CAPSULE PO PRN (16:27)
[2024-02-29] MEDS ORDERED: LOPERAMIDE HCL 2 MG CAPSULE PO PRN (16:27)
[2024-02-29] MEDS ORDERED: ONDANSETRON *ODT* 4 MG TABLET SL PRN (16:27)
[2024-02-29] MEDS ORDERED: NALOXONE (NARCAN) HCL 4 MG/0.1 ML SPRAY NS PRN (16:27)
[2024-02-29] MEDS ORDERED: BENZOCAINE/MENTHOL (CHLORASEPTIC ) LOZENGE MM PRN (16:27)
[2024-02-29] MEDS ORDERED: ACETAMINOPHEN 325 MG TABLET (FP) PO PRN (16:27)
[2024-02-29] MEDS ORDERED: IBUPROFEN 600 MG TABLET (FP) PO PRN (16:27)
[2024-02-29] MEDS ORDERED: ALBUTEROL SO4 HFA INHALER IH PRN (18:06)
[2024-02-29] MEDS: MELATONIN 5 MG TABLETS PO SCH (22:17)
[2024-02-29] MEDS: THIAMINE 100 MG TABLET PO SCH (22:18)
[2024-02-29] MEDS: MAG HYDROX/AL HYDROX/SIMETH 30 ML UNIT-DOSE CUP PO PRN (22:19)
[2024-02-29] MEDS: diazePAM 5 MG TABLET PO SCH (22:19)
[2024-03-01] MEDS: METHOCARBAMOL 500 MG TABLET PO PRN (05:50)
[2024-03-01 09:17] LABS: CHLORIDE 107 mmol/L (98-107); HEMATOCRIT 39.4 % (35.4-49); HEMOGLOBIN 12.9 GM/dL (11.7-16.9); MCH 28.7 pg (25.7-33.7); MCHC 32.7 g/dl (32.0-35.9); MEAN CELL VOLUME 87.9 fl (80-96); PLATELET COUNT 145 10^3/uL (134-434); POTASSIUM 4.1 mmol/L (3.5-5.1); RBC 4.48 M/mm3 (4.00-5.60); RDW 15.8 % (11.9-15.9); SODIUM 140 mmol/L (136-145); WHITE BLOOD COUNT 8.6 K/mm3 (4.0-10.0)
[2024-03-01 09:23] LABS: BLOOD UREA NITROGEN 16.9 mg/dL (7-18); CALCIUM 8.3 mg/dL (8.5-10.1)
[2024-03-01 09:24] LABS: ALBUMIN 3.2 g/dl (3.4-5.0); ANION GAP 5 mmol/L (4-13); CO2 28 mmol/L (21-32); GLUCOSE,RANDOM 109 mg/dL (74-106)
[2024-03-01 09:26] LABS: CREATININE 0.6 mg/dL (0.55-1.3); SGOT/AST 17 U/L (15-37); SGPT/ALT 31 U/L (13-61)
[2024-03-01 09:28] LABS: BILIRUBIN,TOTAL 0.2 mg/dL (0.2-1)
[2024-03-01 09:29] LABS: TOT PROT 6.2 g/dl (6.4-8.2)
[2024-03-01 09:30] LABS: ALK PHOS 91 U/L (45-117)
[2024-03-01] MEDS: PRENATAL VITAMINS W/ FOLIC ACID TABLET (FP) PO SCH (10:23)
[2024-03-01] MEDS: SERTRALINE HCL 50 MG TABLET (FP) PO SCH (10:26)
[2024-03-01] MEDS: hydrOXYzine PAMOATE 25 MG CAPSULE (FP) PO PRN (22:09)
[2024-03-01] MEDS: OLANZapine 7.5 MG TABLET PO SCH (22:09)
[2024-03-02] MEDS: diazePAM 5 MG TABLET PO SCH (05:53)
[2024-03-03] MEDS: diazePAM 5 MG TABLET PO SCH (05:40)
[2024-03-03 06:45] LABS: URINE APPEARANCE CLEAR; URINE BILIRUBIN NEGATIVE (NEGATIVE); URINE COLOR YELLOW; URINE GLUCOSE (UA) NEGATIVE (NEGATIVE); URINE KETONE NEGATIVE (NEGATIVE); URINE LEUK ESTERASE NEGATIVE (NEGATIVE); URINE NITRITE NEGATIVE (NEGATIVE); URINE PROTEIN NEGATIVE (NEGATIVE); URINE UROBILINOGEN 0.2 mg/dL (0.2-1.0)
[2024-03-03 09:04] VITALS: BP 152/86; PULSE 89; RESP 20; TEMP 98
[2024-03-04] MEDS ORDERED: diazePAM 5 MG TABLET PO ONE (06:00)
== END 2024-03-03 09:47 | disposition home or self-care (01) | DRG 774 ==
LOC: YASAS 14:45 → Y3N 16:41
PROVIDERS: ADMIT Surgery; ATTEND Surgery
PROC: HZ2ZZZZ Detoxification Services for Substance Abuse Treatment (ICD-10-PCS; principal; 2024-02-29)
DX: F10.230 Alcohol dependence with withdrawal, uncomplicated (principal); F14.20 Cocaine dependence, uncomplicated; F16.20 Hallucinogen dependence, uncomplicated; F12.20 Cannabis dependence, uncomplicated; F17.210 Nicotine dependence, cigarettes, uncomplicated; F31.9 Bipolar disorder, unspecified; F25.0 Schizoaffective disorder, bipolar type; J45.20 Mild intermittent asthma, uncomplicated
CPT/HCPCS: 36415; 80053; 80305; 80307; 81003; 85027; 86780; 93005; 93010

== ENCOUNTER 2024-03-10 22:25 | Inpatient (IN) | payer OTHER ==
[2024-03-10 23:06] VITALS: BMI 39.1
[2024-03-10] MEDS ORDERED: ALBUTEROL SO4 HFA INHALER IH PRN (23:19)
[2024-03-10] MEDS ORDERED: IBUPROFEN 400 MG TABLET (FP) PO PRN (23:23)
[2024-03-10] MEDS ORDERED: IBUPROFEN 600 MG TABLET (FP) PO PRN (23:23)
[2024-03-10] MEDS ORDERED: NICOTINE POLACRILEX 2 MG LOZENGE BC PRN (23:23)
[2024-03-10] MEDS ORDERED: BENZONATATE 200 MG CAPSULE PO PRN (23:23)
[2024-03-10] MEDS ORDERED: MAG HYDROX/AL HYDROX/SIMETH 30 ML UNIT-DOSE CUP PO PRN (23:23)
[2024-03-10] MEDS ORDERED: BENZOCAINE/MENTHOL (CHLORASEPTIC ) LOZENGE MM PRN (23:23)
[2024-03-10] MEDS ORDERED: guaiFENesin 600 MG TABLET.ER (FP) PO PRN (23:23)
[2024-03-10] MEDS ORDERED: DICYCLOMINE HCL 10 MG CAPSULE PO PRN (23:23)
[2024-03-10] MEDS ORDERED: BISMUTH SUBSALICYLATE 524 MG/30 ML PO PRN (23:23)
[2024-03-10] MEDS ORDERED: ONDANSETRON *ODT* 4 MG TABLET SL PRN (23:23)
[2024-03-10] MEDS ORDERED: POLYETHYLENE GLYCOL (HEALTHYLAX) 3350 17 GM PACKET PO PRN (23:23)
[2024-03-10] MEDS ORDERED: MAGNESIUM HYDROX 2400MG/30ML ORAL SUSPENSION 30 ML CUP PO PRN (23:23)
[2024-03-10] MEDS ORDERED: LOPERAMIDE HCL 2 MG CAPSULE PO PRN (23:23)
[2024-03-10] MEDS ORDERED: NICOTINE POLACRILEX 2 MG GUM BUC PRN (23:23)
[2024-03-11] MEDS ORDERED: METOPROLOL TARTRATE 25 MG TABLET (FP) ONE (00:28)
[2024-03-11] MEDS ORDERED: diazePAM 5 MG TABLET ONE (00:28)
[2024-03-11] MEDS: diazePAM 5 MG TABLET PO SCH (00:32)
[2024-03-11] MEDS: METOPROLOL TARTRATE 25 MG TABLET (FP) PO ONE (00:32)
[2024-03-11] MEDS: METHOCARBAMOL 500 MG TABLET PO PRN (05:31)
[2024-03-11] MEDS: PRENATAL VITAMINS W/ FOLIC ACID TABLET (FP) PO SCH (09:20)
[2024-03-11] MEDS: SERTRALINE HCL 50 MG TABLET (FP) PO SCH (09:20)
[2024-03-11] MEDS: diazePAM 5 MG TABLET PO PRN (09:21)
[2024-03-11] MEDS ORDERED: OLANZapine 7.5 MG TABLET PO SCH (10:00)
[2024-03-11] MEDS: MELATONIN 5 MG TABLETS PO SCH (22:14)
[2024-03-11] MEDS: THIAMINE 100 MG TABLET PO SCH (22:14)
[2024-03-11] MEDS: OLANZapine 7.5 MG TABLET PO SCH (22:34)
[2024-03-12] MEDS: diazePAM 5 MG TABLET PO SCH (05:43)
[2024-03-12] MEDS: ACETAMINOPHEN 325 MG TABLET (FP) PO PRN (05:44)
[2024-03-12 17:17] VITALS: BP 161/97; PULSE 72; RESP 18; TEMP 97.6
[2024-03-13] MEDS ORDERED: diazePAM 5 MG TABLET PO SCH (06:00)
[2024-03-14] MEDS ORDERED: diazePAM 5 MG TABLET PO ONE (06:00)
== END 2024-03-12 19:55 | disposition left against medical advice (07) | DRG 770 ==
LOC: YASAS 22:25 → Y6N 03-11 01:12
PROVIDERS: ADMIT Allergy & Immunology; ATTEND Surgery
PROC: HZ2ZZZZ Detoxification Services for Substance Abuse Treatment (ICD-10-PCS; principal; 2024-03-11)
DX: F10.230 Alcohol dependence with withdrawal, uncomplicated (principal); F14.20 Cocaine dependence, uncomplicated; F16.20 Hallucinogen dependence, uncomplicated; F12.20 Cannabis dependence, uncomplicated; F17.210 Nicotine dependence, cigarettes, uncomplicated; F31.9 Bipolar disorder, unspecified; F19.282 Other psychoactive substance dependence with psychoactive substance-induced sleep disorder; F19.24 Other psychoactive substance dependence with psychoactive substance-induced mood disorder; G47.30 Sleep apnea, unspecified; I10 Essential (primary) hypertension; J45.909 Unspecified asthma, uncomplicated
CPT/HCPCS: 80305; 80307

== ENCOUNTER 2024-05-22 22:06 | Inpatient (IN) | payer OTHER ==
[2024-05-22 22:25] VITALS: BMI 41.5
[2024-05-22] MEDS ORDERED: ALBUTEROL SO4 HFA INHALER IH PRN (22:36)
[2024-05-22] MEDS ORDERED: chlordiazePOXIDE HCL 25 MG CAPSULE PO PRN (22:42)
[2024-05-22] MEDS ORDERED: LOPERAMIDE HCL 2 MG CAPSULE PO PRN (22:45)
[2024-05-22] MEDS ORDERED: guaiFENesin 600 MG TABLET.ER (FP) PO PRN (22:45)
[2024-05-22] MEDS ORDERED: MAGNESIUM HYDROX 2400MG/30ML ORAL SUSPENSION 30 ML CUP PO PRN (22:45)
[2024-05-22] MEDS ORDERED: NICOTINE POLACRILEX 2 MG GUM BUC PRN (22:45)
[2024-05-22] MEDS ORDERED: BENZOCAINE/MENTHOL (CHLORASEPTIC ) LOZENGE MM PRN (22:45)
[2024-05-22] MEDS ORDERED: NICOTINE POLACRILEX 2 MG LOZENGE BC PRN (22:45)
[2024-05-22] MEDS ORDERED: ONDANSETRON *ODT* 4 MG TABLET SL PRN (22:45)
[2024-05-22] MEDS ORDERED: IBUPROFEN 400 MG TABLET (FP) PO PRN (22:45)
[2024-05-22] MEDS ORDERED: hydrOXYzine PAMOATE 25 MG CAPSULE (FP) PO PRN (22:45)
[2024-05-22] MEDS ORDERED: POLYETHYLENE GLYCOL (HEALTHYLAX) 3350 17 GM PACKET PO PRN (22:45)
[2024-05-22] MEDS ORDERED: MAG HYDROX/AL HYDROX/SIMETH 30 ML UNIT-DOSE CUP PO PRN (22:45)
[2024-05-22] MEDS ORDERED: BISMUTH SUBSALICYLATE 524 MG/30 ML PO PRN (22:45)
[2024-05-22] MEDS ORDERED: DICYCLOMINE HCL 10 MG CAPSULE PO PRN (22:45)
[2024-05-22] MEDS ORDERED: BENZONATATE 200 MG CAPSULE PO PRN (22:45)
[2024-05-22] MEDS ORDERED: METOPROLOL TARTRATE 25 MG TABLET (FP) ONE (23:01)
[2024-05-22] MEDS ORDERED: chlordiazePOXIDE HCL 25 MG CAPSULE ONE (23:01)
[2024-05-22] MEDS: METOPROLOL TARTRATE 25 MG TABLET (FP) PO ONE (23:03)
[2024-05-22] MEDS: chlordiazePOXIDE HCL 25 MG CAPSULE PO SCH (23:03)
[2024-05-22] MEDS ORDERED: IBUPROFEN 600 MG TABLET (FP) PO ONE (23:06)
[2024-05-22] MEDS: IBUPROFEN 600 MG TABLET (FP) PO PRN (23:07)
[2024-05-23] MEDS ORDERED: chlordiazePOXIDE HCL 25 MG CAPSULE ONE ×2 (05:34→10:23)
[2024-05-23 09:53] LABS: HEMATOCRIT 41.9 % (35.4-49); HEMOGLOBIN 13.7 GM/dL (11.7-16.9); MCH 29.2 pg (25.7-33.7); MCHC 32.7 g/dl (32.0-35.9); MEAN CELL VOLUME 89.3 fl (80-96); MEAN PLT VOLUME 9.3 fl (7.5-11.1); PLATELET COUNT 184 10^3/uL (134-434); RBC 4.69 M/mm3 (4.00-5.60); RDW 14.6 % (11.9-15.9); WHITE BLOOD COUNT 9.2 K/mm3 (4.0-10.0)
[2024-05-23 10:04] LABS: POTASSIUM 4.1 mmol/L (3.5-5.1)
[2024-05-23 10:15] LABS: ALBUMIN 3.6 g/dl (3.4-5.0); BLOOD UREA NITROGEN 15.4 mg/dL (7-18)
[2024-05-23 10:18] LABS: CREATININE 0.7 mg/dL (0.55-1.3)
[2024-05-23 10:20] LABS: BILIRUBIN,TOTAL 0.4 mg/dL (0.2-1)
[2024-05-23] MEDS: PRENATAL VITAMINS W/ FOLIC ACID TABLET (FP) PO SCH (10:23)
[2024-05-23] MEDS ORDERED: PRENATAL VITAMINS W/ FOLIC ACID TABLET (FP) PO ONE (10:23)
[2024-05-23] MEDS: SERTRALINE HCL 50 MG TABLET (FP) PO SCH (14:13)
[2024-05-23] MEDS: METHOCARBAMOL 500 MG TABLET PO PRN (21:34)
[2024-05-23] MEDS: THIAMINE 100 MG TABLET PO SCH (22:07)
[2024-05-23] MEDS: MELATONIN 5 MG TABLETS PO SCH (22:07)
[2024-05-23] MEDS: OLANZapine 5 MG TABLET PO SCH (22:07)
[2024-05-24] MEDS ORDERED: chlordiazePOXIDE HCL 25 MG CAPSULE ONE (05:46)
[2024-05-24] MEDS: chlordiazePOXIDE HCL 25 MG CAPSULE PO SCH (05:47)
[2024-05-25] MEDS ORDERED: chlordiazePOXIDE HCL 10 MG CAPSULE PO PRN
[2024-05-25] MEDS: chlordiazePOXIDE HCL 10 MG CAPSULE PO SCH (05:13)
[2024-05-25] MEDS: ACETAMINOPHEN 325 MG TABLET (FP) PO PRN (05:14)
[2024-05-25] MEDS ORDERED: NALOXONE (NYS OPIOID OVERDOSE PROGRAM) 4 MG/0.1 ML SPRAY NS SCH (15:45)
[2024-05-25 17:55] VITALS: BP 135/88; PULSE 100; RESP 18; TEMP 97.8
[2024-05-26] MEDS ORDERED: chlordiazePOXIDE HCL 10 MG CAPSULE PO SCH (05:00)
[2024-05-27] MEDS ORDERED: chlordiazePOXIDE HCL 10 MG CAPSULE PO ONE (05:00)
== END 2024-05-25 17:22 | disposition home or self-care (01) | DRG 774 ==
LOC: YASAS 22:06 → Y6N 05-23 11:50 → Y3N 05-23 14:30
PROVIDERS: ADMIT Allergy & Immunology; ATTEND Surgery
PROC: HZ2ZZZZ Detoxification Services for Substance Abuse Treatment (ICD-10-PCS; principal; 2024-05-23)
DX: F10.230 Alcohol dependence with withdrawal, uncomplicated (principal); F10.220 Alcohol dependence with intoxication, uncomplicated; F16.20 Hallucinogen dependence, uncomplicated; F12.20 Cannabis dependence, uncomplicated; F14.21 Cocaine dependence, in remission; F31.9 Bipolar disorder, unspecified; F25.0 Schizoaffective disorder, bipolar type; F19.982 Other psychoactive substance use, unspecified with psychoactive substance-induced sleep disorder; F19.94 Other psychoactive substance use, unspecified with psychoactive substance-induced mood disorder; I10 Essential (primary) hypertension; G47.30 Sleep apnea, unspecified; J45.909 Unspecified asthma, uncomplicated; R00.0 Tachycardia, unspecified; E66.812 Obesity, class 2; Z68.41 Body mass index [BMI] 40.0-44.9, adult; Z86.69 Personal history of other diseases of the nervous system and sense organs; Z56.0 Unemployment, unspecified; Z59.00 Homelessness unspecified
CPT/HCPCS: 36415; 80053; 85027

== ENCOUNTER 2024-08-19 08:50 | Inpatient (IN) | payer OTHER ==
[2024-08-19 09:16] VITALS: BMI 42.8
[2024-08-19] MEDS ORDERED: ALBUTEROL SO4 HFA INHALER IH PRN (10:00)
[2024-08-19] MEDS ORDERED: DICYCLOMINE HCL 10 MG CAPSULE PO PRN (10:03)
[2024-08-19] MEDS ORDERED: BENZONATATE 200 MG CAPSULE PO PRN (10:03)
[2024-08-19] MEDS ORDERED: POLYETHYLENE GLYCOL (HEALTHYLAX) 3350 17 GM PACKET PO PRN (10:03)
[2024-08-19] MEDS ORDERED: BISMUTH SUBSALICYLATE 262 MG/15 ML BTL PO PRN (10:03)
[2024-08-19] MEDS ORDERED: hydrOXYzine PAMOATE 25 MG CAPSULE (FP) PO PRN (10:03)
[2024-08-19] MEDS ORDERED: BENZOCAINE/MENTHOL (CHLORASEPTIC ) LOZENGE MM PRN (10:03)
[2024-08-19] MEDS ORDERED: NALOXONE (NARCAN) HCL 4 MG/0.1 ML SPRAY NS PRN (10:03)
[2024-08-19] MEDS ORDERED: LOPERAMIDE HCL 2 MG CAPSULE PO PRN (10:03)
[2024-08-19] MEDS ORDERED: IBUPROFEN 400 MG TABLET (FP) PO PRN (10:03)
[2024-08-19] MEDS ORDERED: ACETAMINOPHEN 325 MG TABLET (FP) PO PRN (10:03)
[2024-08-19] MEDS ORDERED: ONDANSETRON *ODT* 4 MG TABLET SL PRN (10:03)
[2024-08-19] MEDS ORDERED: MAG HYDROX/AL HYDROX/SIMETH 30 ML UNIT-DOSE CUP PO PRN (10:03)
[2024-08-19] MEDS ORDERED: guaiFENesin 600 MG TABLET.ER (FP) PO PRN (10:03)
[2024-08-19] MEDS ORDERED: MAGNESIUM HYDROX 2400MG/30ML ORAL SUSPENSION 30 ML CUP PO PRN (10:03)
[2024-08-19] MEDS: METOPROLOL TARTRATE 25 MG TABLET (FP) PO ONE (12:25)
[2024-08-19] MEDS: IBUPROFEN 600 MG TABLET (FP) PO PRN (22:33)
[2024-08-19] MEDS: MELATONIN 5 MG TABLETS PO SCH (22:34)
[2024-08-19] MEDS: METHOCARBAMOL 500 MG TABLET PO PRN (22:34)
[2024-08-19] MEDS: THIAMINE 100 MG TABLET PO SCH (22:34)
[2024-08-20] MEDS ORDERED: diazePAM 5 MG TABLET PO PRN (08:34)
[2024-08-20] MEDS: PRENATAL VITAMINS W/ FOLIC ACID TABLET (FP) PO SCH (10:25)
[2024-08-20] MEDS: NALTREXONE HCL 50 MG TABLET PO SCH (10:26)
[2024-08-20] MEDS: diazePAM 5 MG TABLET PO SCH (10:27)
[2024-08-20 11:34] LABS: HEMATOCRIT 40.5 % (35.4-49); HEMOGLOBIN 13.5 GM/dL (11.7-16.9); MCH 29.2 pg (25.7-33.7); MCHC 33.4 g/dl (32.0-35.9); MEAN CELL VOLUME 87.4 fl (80-96); MEAN PLT VOLUME 9.2 fl (7.5-11.1); PLATELET COUNT 152 10^3/uL (134-434); RBC 4.64 M/mm3 (4.00-5.60); RDW 15.2 % (11.9-15.9); WHITE BLOOD COUNT 8.2 K/mm3 (4.0-10.0)
[2024-08-20 11:37] LABS: POTASSIUM 3.9 mmol/L (3.5-5.1)
[2024-08-20] MEDS: SERTRALINE HCL 50 MG TABLET (FP) PO SCH (11:41)
[2024-08-20 11:50] LABS: CALCIUM 8.5 mg/dL (8.5-10.1)
[2024-08-20 11:51] LABS: ALBUMIN 3.1 g/dl (3.4-5.0)
[2024-08-20 11:54] LABS: BILIRUBIN,TOTAL 0.2 mg/dL (0.2-1); CREATININE 0.6 mg/dL (0.55-1.3)
[2024-08-20 11:56] LABS: TOT PROT 6.1 g/dl (6.4-8.2)
[2024-08-20] MEDS: HYDROCHLOROTHIAZIDE 12.5 MG CAPSULE (FP) PO SCH (16:52)
[2024-08-20] MEDS: OLANZapine 7.5 MG TABLET PO SCH (22:38)
[2024-08-21 16:31] VITALS: BP 153/90; PULSE 80; RESP 16; TEMP 97.6
[2024-08-22] MEDS ORDERED: diazePAM 5 MG TABLET PO SCH (06:00)
[2024-08-23] MEDS ORDERED: diazePAM 5 MG TABLET PO SCH (06:00)
[2024-08-24] MEDS ORDERED: diazePAM 5 MG TABLET PO ONE (06:00)
== END 2024-08-21 16:34 | disposition left against medical advice (07) | DRG 770 ==
LOC: YASAS 08:50 → Y3N 10:36
PROVIDERS: ADMIT Allergy & Immunology; ATTEND Allergy & Immunology
PROC: HZ2ZZZZ Detoxification Services for Substance Abuse Treatment (ICD-10-PCS; principal; 2024-08-19)
DX: F10.230 Alcohol dependence with withdrawal, uncomplicated (principal); F16.10 Hallucinogen abuse, uncomplicated; F25.9 Schizoaffective disorder, unspecified; F31.9 Bipolar disorder, unspecified; F41.9 Anxiety disorder, unspecified; G47.30 Sleep apnea, unspecified; I10 Essential (primary) hypertension; J45.909 Unspecified asthma, uncomplicated
CPT/HCPCS: 36415; 80053; 80305; 80307; 85027; 86780

== ENCOUNTER 2024-12-04 21:58 | Inpatient (IN) | payer OTHER ==
[2024-12-04 22:29] VITALS: BMI 44.3
[2024-12-04] MEDS ORDERED: NICOTINE POLACRILEX 2 MG GUM BUC PRN (23:18)
[2024-12-04] MEDS ORDERED: LOPERAMIDE HCL 2 MG CAPSULE PO PRN (23:18)
[2024-12-04] MEDS ORDERED: BENZOCAINE/MENTHOL (CHLORASEPTIC ) LOZENGE MM PRN (23:18)
[2024-12-04] MEDS ORDERED: MAG HYDROX/AL HYDROX/SIMETH 30 ML UNIT-DOSE CUP PO PRN (23:18)
[2024-12-04] MEDS ORDERED: ONDANSETRON *ODT* 4 MG TABLET SL PRN (23:18)
[2024-12-04] MEDS ORDERED: BENZONATATE 200 MG CAPSULE PO PRN (23:18)
[2024-12-04] MEDS ORDERED: NALOXONE (NARCAN) HCL 4 MG/0.1 ML SPRAY NS PRN (23:18)
[2024-12-04] MEDS ORDERED: POLYETHYLENE GLYCOL (HEALTHYLAX) 3350 17 GM PACKET PO PRN (23:18)
[2024-12-04] MEDS ORDERED: guaiFENesin 600 MG TABLET.ER (FP) PO PRN (23:18)
[2024-12-04] MEDS ORDERED: MAGNESIUM HYDROX 2400MG/30ML ORAL SUSPENSION 30 ML CUP PO PRN (23:18)
[2024-12-04] MEDS ORDERED: NICOTINE POLACRILEX 2 MG LOZENGE BC PRN (23:18)
[2024-12-04] MEDS ORDERED: DICYCLOMINE HCL 10 MG CAPSULE PO PRN (23:18)
[2024-12-04] MEDS ORDERED: IBUPROFEN 400 MG TABLET (FP) PO PRN (23:18)
[2024-12-05] MEDS: METHOCARBAMOL 500 MG TABLET PO PRN (05:57)
[2024-12-05] MEDS: IBUPROFEN 600 MG TABLET (FP) PO PRN (05:57)
[2024-12-05] MEDS ORDERED: ALBUTEROL SO4 HFA INHALER IH PRN (09:52)
[2024-12-05] MEDS: PRENATAL VITAMINS W/ FOLIC ACID TABLET (FP) PO SCH (10:23)
[2024-12-05] MEDS: ACETAMINOPHEN 325 MG TABLET (FP) PO PRN (10:28)
[2024-12-05 15:17] LABS: MCHC 30.8 g/dl (32.3-36.5); MEAN CELL VOLUME 90.9 fl (79.0-92.2); MEAN PLT VOLUME 11.9 fl (9.4-12.4); RDW 14.4 % (12.1-15.9)
[2024-12-05 15:30] LABS: CO2 31 mmol/L (21-32); GLUCOSE,RANDOM 110 mg/dL (74-106)
[2024-12-05 15:33] LABS: CREATININE 0.7 mg/dL (0.55-1.3); SGOT/AST 121 U/L (15-37); SGPT/ALT 85 U/L (13-61)
[2024-12-05 15:34] LABS: TOT PROT 6.3 g/dl (6.4-8.2)
[2024-12-05 15:36] LABS: ALK PHOS 88 U/L (45-117)
[2024-12-05] MEDS: MELATONIN 5 MG TABLETS PO SCH (22:33)
[2024-12-05] MEDS: THIAMINE 100 MG TABLET PO SCH (22:33)
[2024-12-06] MEDS: BISMUTH SUBSALICYLATE 524 MG/30 ML PO PRN (10:29)
[2024-12-06] MEDS: hydrOXYzine PAMOATE 25 MG CAPSULE (FP) PO PRN (21:11)
[2024-12-07] MEDS: METOPROLOL TARTRATE 25 MG TABLET (FP) PO ONE (14:57)
[2024-12-08 08:59] VITALS: BP 134/66; PULSE 98; RESP 16; TEMP 97.3
== END 2024-12-08 10:54 | disposition left against medical advice (07) | DRG 770 ==
LOC: YASAS 21:58 → Y3N 12-05 01:51
PROVIDERS: ADMIT Family Medicine; ATTEND Allergy & Immunology
PROC: HZ2ZZZZ Detoxification Services for Substance Abuse Treatment (ICD-10-PCS; principal; 2024-12-05)
DX: F10.230 Alcohol dependence with withdrawal, uncomplicated (principal); F12.20 Cannabis dependence, uncomplicated; F16.20 Hallucinogen dependence, uncomplicated; F20.9 Schizophrenia, unspecified; F31.9 Bipolar disorder, unspecified; F41.9 Anxiety disorder, unspecified; I10 Essential (primary) hypertension; J45.20 Mild intermittent asthma, uncomplicated; Z87.891 Personal history of nicotine dependence
CPT/HCPCS: 36415; 80053; 80305; 80307; 85027; 86780